=== PATIENT | male | born 1975 | race Caucasian/White ===

== ENCOUNTER 2017-02-06 15:42 | Emergency (ER) | payer OTHER ==
[2017-02-06 15:53] VITALS: BP 165/102
--- NOTE | 2017-02-06 16:27 | EDM.PDOC ---
ED HPI GENERAL MEDICAL PROBLEM - General Chief Complaint: Lower Extremity Injury/Pain Stated Complaint: Right knee pain Time Seen by Provider: 02/06/17 16:00 Source of Information: Reports: Patient, RN Notes Reviewed History Limitations: Reports: No Limitations - History of Present Illness INITIAL COMMENTS - FREE TEXT/NARRATIVE: 41 year old male presents to the ED today with complaints of right knee pain. He had no acute injury. He had surgery on the right knee approximately [address] Jacobo and has intermittent pain ever since. He was working in his garage yesterday and is wondering if that's what caused his increase in pain. He's taken Ibuprofen 800mg with no relief in pain. [facility] He denies calf pain, redness, or swelling. He is currently seeing physical therapy for this right knee pain. Treatments HEDIS ABSTRACTOR: Reports: Other (see below) Other Treatments HEDIS ABSTRACTOR: motrin at 1130 Right Knee Pain Score (Numeric/FACES): 8 - Related Data Allergies Allergy/AdvReac Type Severity Reaction Status Date / Time No Known Allergies Allergy Verified 02/06/17 15:49 Home Meds: Home Meds Ibuprofen [Motrin] 600 mg PO QID PRN 03/26/14 [History] Vitamin D. 02/06/17 [History] oxyCODONE HCl/Acetaminophen [Percocet 5-325 mg Tablet] 1 - 2 each PO Q4H PRN # 20 tablet 02/06/17 [Rx] predniSONE [Prednisone] 40 mg PO DAILY #10 tablet 02/06/17 [Rx] Past Medical History - Past Health History Medical/Surgical History: Denies Medical/Surgical History Cardiovascular History: Reports: High Cholesterol Gastrointestinal History: Reports: Pancreatitis - Past Surgical History Musculoskeletal Surgical History: Reports: Arthroscopic Knee Social & Family History - Tobacco Use Smoking Status *Q: Current Every Day Smoker Years of Tobacco use: 20 Packs/Tins Daily: 0.5 - Caffeine Use Caffeine Use: Reports: Energy Drinks, Soda - Alcohol Use Days Per Week of Alcohol Use: 0 Number of Drinks Per Day: 0 Total Drinks Per Week: 0 - Recreational Drug Use Recreational Drug Use: No Drug Use in Last 12 Months: No Review of Systems - Review of Systems Review Of Systems: See Below Constitutional: Denies: Chills, Fever Musculoskeletal: Reports: Joint Pain, Joint Swelling Skin: Reports: No Symptoms. Denies: Rash, Wound, Lumps ED EXAM, GENERAL - Physical Exam Exam: See Below Exam Limited By: No Limitations General Appearance: Alert, No Apparent Distress, Obese Respiratory/Chest: No Respiratory Distress, Lungs Clear Cardiovascular: Regular Rate, Rhythm Extremities: Normal Inspection, Normal Range of Motion, Other (Able to bear weight. No knee effusion. Tenderness over medial aspect of right knee. CMS intact. No calf swelling or erythema. Negative sunni's sign. ) Course - Vital Signs Last Recorded V/S: Last Vital Signs Temp 97.5 F 02/06/17 15:50 Pulse 70 02/06/17 15:50 Resp 17 02/06/17 15:50 BP 165/102 H 02/06/17 15:50 Pulse Ox 98 02/06/17 15:50 - Re-Assessments/Exams Free Text/Narrative Re-Assessment/Exam: This is a chronic problem with no acute injury. X-rays are not indicated. Will start the patient on prednisone and Percocet. He is to f/u with the [facility] and Dr. Jacobo next week. Discharge instructions as documented. Departure - Departure Time of Disposition: 16:23 Disposition: Home, Self-Care 01 Condition: Good Clinical Impression: Knee pain, right Qualifiers: Chronicity: chronic Qualified Code(s): M25.561 - Pain in right knee; G89.29 - Other chronic pain - Discharge Information Prescriptions: oxyCODONE HCl/Acetaminophen [Percocet 5-325 mg Tablet] 1 - 2 each PO Q4H PRN # 20 tablet PRN Reason: Pain predniSONE [Prednisone] 40 mg PO DAILY #10 tablet Referrals: PCP,Not In Area [Primary Care Provider] - Forms: ED Department Discharge Additional Instructions: Rest, ice and elevate Continue with physical therapy Prednisone 40mg once a day for 5 days Percocet 1-2 tabs every 4-6 hours as needed No driving for at least 8 hours after taking Percocet [facility] and [facility] Jacobo next week
== END 2017-02-06 16:40 | disposition home or self-care (01) ==
LOC: JD.ED 15:42
DX: M25.561 Pain in right knee (principal); E78.00 Pure hypercholesterolemia, unspecified; F17.210 Nicotine dependence, cigarettes, uncomplicated
CPT/HCPCS: 99283

== ENCOUNTER 2017-06-07 07:48 | Inpatient (IN) | payer OTHER ==
[~2017-06-07 07:48] MED LIST: Acetaminophen/oxyCODONE 325-5 MG Tab PO PRN; Bisacodyl 5 MG Tab PO PRN; Famotidine 20 MG Tab PO SCH; Lactated Ringers 1,000 ML IV SCH; Lidocaine 1%/Sod Bicarbonate in NS 8.4% 1 ML Syringe IV PRN; Magnesium Hydroxide 400 MG/5 ML Susp 30 ML Cup PO PRN; Morphine 2 MG/ML Syringe IVPUSH PRN; Naloxone 0.4 MG/ML SDV IVPUSH PRN; Ondansetron 4 MG/2 ML SDV IVPUSH PRN; Sennosides 8.6 MG Tab PO PRN; Sodium Chloride 0.9% 10 ML Syringe FLUSH PRN; ceFAZolin 2 GM in Premix Bag 1 BAG IV SCH; diphenhydrAMINE 50 MG/ML SDV IVPUSH PRN
[2017-06-07] MEDS ORDERED: Ondansetron 4 MG/2 ML SDV ONE ×2 (08:16→10:29)
[2017-06-07] MEDS ORDERED: Propofol 200 MG/20 ML SDV ONE ×5 (08:16→13:08)
[2017-06-07] MEDS ORDERED: Lactated Ringers 0 ML ONE (08:16)
[2017-06-07] MEDS ORDERED: Lidocaine 1% 0 ML ONE (08:16)
[2017-06-07] MEDS ORDERED: Midazolam 1 MG/ML 2 ML SDV ONE ×2 (08:17→10:30)
[2017-06-07] MEDS ORDERED: fentaNYL 100 MCG/2 ML SDV ONE ×2 (08:17→10:30)
[2017-06-07] MEDS ORDERED: ceFAZolin 1 GM Vial ONE ×3 (08:21→10:29)
[2017-06-07] MEDS ORDERED: Ketamine 500 mg/10 ML MDV ONE (08:36)
[2017-06-07] MEDS ORDERED: Iodine/Sodium Iodide 2% Tincture 30 ML Bottle ONE (08:49)
--- NOTE | 2017-06-07 09:30 | PCM.PREANE ---
Preanesthetic Assessment - Anesthesia/Transfusion/Family Hx Anesthesia History: Prior Anesthesia Without Reaction Family History of Anesthesia Reaction: No Transfusion History: No Prior Transfusion(s) Intubation History: Unknown - Review of Systems General: No Symptoms Pulmonary: No Symptoms Cardiovascular: No Symptoms Gastrointestinal: No Symptoms Neurological: No Symptoms Other: Reports: Liver Problems (History of Fatty Liver) - Physical Assessment NPO Status Date: 06/06/17 O2 Sat by Pulse Oximetry: 96 Respiratory Rate: 18 Vital Signs: Last Vital Signs Temp 36.6 C 06/07/17 08:20 Pulse 69 06/07/17 08:20 Resp 18 06/07/17 08:20 BP 139/91 H 06/07/17 08:20 Pulse Ox 96 06/07/17 08:20 Height: 1.73 m Weight: 135.171 kg ASA Class: 2 Mental Status: Alert & Oriented x3 Dentition: Reports: Missing Tooth/Teeth Thyro-Mental Finger Breadths: 3 Mouth Opening Finger Breadths: 3 ROM/Head Extension: Full Lungs: Clear to Auscultation, Normal Respiratory Effort Cardiovascular: Regular Rate, Regular Rhythm - Lab Values: Laboratory Last Values MRSA (PCR) Negative 05/26/17 15:30 - Imaging/EKG Impressions: Reviewed - Allergies Allergies/Adverse Reactions: Allergies Allergy/AdvReac Type Severity Reaction Status Date / Time No Known Allergies Allergy Verified 06/04/17 11:50 - Acknowledgements Anesthesia Type Planned: Spinal Pt an Appropriate Candidate for the Planned Anesthesia: Yes Alternatives and Risks of Anesthesia Discussed w Pt/Guardian: Yes Pt/Guardian Understands and Agrees with Anesthesia Plan: Yes PreAnesthesia Questionnaire - Past Health History Medical/Surgical History: Denies Medical/Surgical History HEENT History: Reports: None Cardiovascular History: Reports: High Cholesterol Respiratory History: Reports: Sleep Apnea Gastrointestinal History: Reports: None Other Gastrointestinal History: Fatty liver, abnormal liver function Genitourinary History: Reports: None Musculoskeletal History: Reports: Other (See Below) Other Musculoskeletal History: Patellar instability Neurological History: Reports: None Psychiatric History: Reports: None Endocrine/Metabolic History: Reports: Obesity/BMI 30+, Vitamin D Deficiency, Other (See Below) Hematologic History: Reports: None Immunologic History: Reports: None Oncologic (Cancer) History: Reports: None Dermatologic History: Reports: None - Past Surgical History Head Surgeries/Procedures: Reports: None HEENT Surgical History: Reports: Other (See Below) Other HEENT Surgeries/Procedures: Dental extractions Cardiovascular Surgical History: Reports: None Respiratory Surgical History: Reports: None GI Surgical History: Reports: None Female Surgical History: Male Surgical History: Reports: None Neurological Surgical History: Reports: None Musculoskeletal Surgical History: Reports: Other (See Below) Other Musculoskeletal Surgeries/Procedures:: Right knee arthroscopy Oncologic Surgical History: Reports: None Dermatological Surgical History: Reports: None - SUBSTANCE USE Smoking Status *Q: Former Smoker Tobacco Use Within Last Twelve Months: Snuff/Dip Days Per Week of Alcohol Use: 0 Number of Drinks Per Day: 0 Total Drinks Per Week: 0 Recreational Drug Use History: No - HOME MEDS Home Medications: Home Meds Ibuprofen [Motrin] 600 mg PO BID PRN 03/26/14 [History] Ascorbate Calcium [Vitamin C] 500 mg PO DAILY 06/04/17 [History] Cholecalciferol (Vitamin D3) [Vitamin D3] 5,000 unit PO BEDTIME 06/04/17 [ History] - CURRENT (IN HOUSE) MEDS Current Meds: Current Medications Aspirin (Ecotrin) 325 mg PO BID [facility] Bisacodyl (Dulcolax) 5 mg PO DAILY PRN PRN Reason: Constipation Cyclobenzaprine HCl (Flexeril) 10 mg PO TID PRN PRN Reason: Spasms Diphenhydramine HCl (Benadryl) 25 mg IVPUSH Q4H PRN PRN Reason: Nausea Docusate Sodium (Colace) 100 mg PO BID [facility] Famotidine (Pepcid) 20 mg PO Q12H [facility] Lactated Ringer's (Ringers, Lactated) 1,000 mls @ 125 mls/hr IV ASDIRECTED [facility] Stop: 06/07/17 18:00 Cefazolin Sodium/Dextrose 2 gm (/ Premix) 50 mls @ 100 mls/hr IV Q8H [facility] Stop: 06/07/17 23:14 Ketorolac Tromethamine (Toradol) 15 mg IVPUSH Q6H PRN PRN Reason: Pain Lidocaine/Sodium Bicarbonate (Buffered Lidocaine 1% In Ns 8.4%) 0.25 ml IV ONETIME PRN PRN Reason: Prior to IV Start Stop: 06/07/17 18:00 Magnesium Hydroxide (Milk Of Magnesia) 30 ml PO BID PRN PRN Reason: Constipation Morphine Sulfate (Morphine) 2 mg IVPUSH Q2H PRN PRN Reason: Breakthrough Pain Naloxone HCl (Narcan) 0.1 mg IVPUSH Q5M PRN PRN Reason: Oversedation Ondansetron HCl (Zofran) 4 mg IVPUSH Q6H PRN PRN Reason: Nausea/Vomiting Oxycodone/Acetaminophen (Percocet 325-5 Mg) 1 - 2 tab PO Q4H PRN PRN Reason: Pain Senna (Senna) 8.6 mg PO BID PRN PRN Reason: Constipation Sodium Chloride (Saline Flush) 10 ml FLUSH ASDIRECTED PRN PRN Reason: Keep Vein Open Stop: 06/07/17 18:00 Discontinued Medications Bupivacaine HCl (Marcaine 0.25%) Confirm Administered Dose 30 ml .ROUTE .STK- MED ONE Stop: 06/07/17 08:50 Cefazolin Sodium (Ancef) Confirm Administered Dose 2 gm .ROUTE .STK-MED ONE Stop: 06/07/17 08:17 Cefazolin Sodium (Ancef) Confirm Administered Dose 1 gm .ROUTE .STK-MED ONE Stop: 06/07/17 08:22 Cefazolin Sodium (Ancef) Confirm Administered Dose 2 gm .ROUTE .STK-MED ONE Stop: 06/07/17 08:50 Morphine Sulfate 8 mg/Epinephrine HCl 0.3 mg/Cefuroxime Sodium 750 mg/Ketorolac Tromethamine 30 mg/Sodium Chloride 27.9 ml 0 mg .XX ONETIME ONE Stop: 06/07/17 06:37 Fentanyl (Sublimaze) Confirm Administered Dose 100 mcg .ROUTE .STK-MED ONE Stop: 06/07/17 08:18 Lidocaine HCl (Xylocaine-Mpf 1%) Confirm Administered Dose 10 mls @ as directed .ROUTE .STK-MED ONE Stop: 06/07/17 08:17 Lactated Ringer's (Ringers, Lactated) Confirm Administered Dose 2,000 mls @ as directed .ROUTE .STK-MED ONE Stop: 06/07/17 08:17 Iodine (Iodine 2% Mild Tincture) Confirm Administered Dose 30 ml .ROUTE .STK- MED ONE Stop: 06/07/17 08:50 Ketamine HCl (Ketalar) Confirm Administered Dose 500 mg .ROUTE .STK-MED ONE Stop: 06/07/17 08:37 Midazolam HCl (Versed 1 Mg/Ml) Confirm Administered Dose 2 mg .ROUTE .STK-MED ONE Stop: 06/07/17 08:18 Ondansetron HCl (Zofran) Confirm Administered Dose 4 mg .ROUTE .STK-MED ONE Stop: 06/07/17 08:17 Propofol (Diprivan 20 Ml) Confirm Administered Dose 400 mg .ROUTE .STK-MED ONE Stop: 06/07/17 08:17 Tranexamic Acid (Cyklokapron) Confirm Administered Dose 1,000 mg .ROUTE .STK- MED ONE Stop: 06/07/17 08:50 Vancomycin HCl (Vancomycin) Confirm Administered Dose 1 gm .ROUTE .STK-MED ONE Stop: 06/07/17 08:50
[2017-06-07] MEDS ORDERED: Morphine PF 10 MG/10 ML SDV ONE ×2 (09:56→10:30)
[2017-06-07] MEDS ORDERED: Phenylephrine/Normal Saline 100 MCG/ML 10 ML Syringe ONE (09:57)
[2017-06-07] MEDS: ceFAZolin 1 GM Vial ONE ×2 (12:48→13:25)
[2017-06-07] MEDS: Bupivacaine 0.25% 30 ML SDV ONE ×2 (12:49→13:30)
[2017-06-07] MEDS: Morphine 8 MG, EPINEPHrine 0.3 MG, Cefuroxime 750 MG, Ketorolac 30 MG, Sodium Chloride ... ONE ×10 (12:49→13:30)
[2017-06-07] MEDS: Vancomycin 1 GM SDV ONE ×2 (12:52→13:35)
[2017-06-07] MEDS ORDERED: Lactated Ringers 1,000 ML ONE ×2 (13:59)
[2017-06-07] MEDS ORDERED: HYDROmorphone 0.5 MG/0.5 ML Syringe IVPUSH PRN (14:20)
[2017-06-07] MEDS ORDERED: fentaNYL 100 MCG/2 ML SDV IVPUSH PRN (14:20)
--- NOTE | 2017-06-07 14:23 | PCM.POSTAN ---
POST ANESTHESIA ASSESSMENT - MENTAL STATUS Mental Status: Alert, Oriented - VITAL SIGNS Pulse Rate: 63 SaO2: 99 Resp Rate: 16 Blood Pressure: 121/73 Temperature: 36.2 C - RESPIRATORY Respiratory Status: Respiratory Rate WNL, Airway Patent, O2 Saturation Stable, Supplemental Oxygen - CARDIOVASCULAR CV Status: Blood Pressure Stable Free Text/Narrative:: pt noted to have bigeminal PVCs will get EKG at this time - GASTROINTESTINAL GI Status: No Symptoms - PAIN Pain Score: 0 - POST OP HYDRATION Hydration Status: Adequate & Stable
--- NOTE | 2017-06-07 14:42 | CR ---
Right knee: AP and crosstable lateral views of the right knee were obtained. Comparison: Previous MRI knee study of 04/14/17. Medial and lateral joint compartments are maintained in height. Surgery noted at the patellofemoral joint. Joint fluid and air is seen from the surgical procedure. Underlying bony structures are intact. Impression: 1. Recently placed patellar prosthesis. Nothing acute is seen. Diagnostic code #2
[2017-06-07] MEDS ORDERED: diphenhydrAMINE 50 MG/ML SDV IVPUSH PRN (14:54)
--- NOTE | 2017-06-07 15:46 | PCM.CONS ---
H&P History of Present Illness - General Admit Problem/Dx: Admission Diagnosis/Problem Admission Diagnosis/Problem Osteoarthritis of knee Source of Information: Patient History Limitations: Reports: No Limitations - History of Present Illness Initial Comments - Free Text/Narative: pt come for elective surgery for knee cap replacement by Dr torres, pt tolerated procedure well with no complications. In Recovery he had brief episode of PAC on monitor which was not captured on ECG, pt was asymptomatic during this time, Currently have no CP or sob. Pt denies any dizziness or palpitation. Pt had no significant PMHx except for sleep apnea. Right Knee Pain Score (Numeric/FACES): 4 - Related Data Allergies/Adverse Reactions: Allergies Allergy/AdvReac Type Severity Reaction Status Date / Time No Known Allergies Allergy Verified 06/04/17 11:50 Home Medications: Home Meds Ibuprofen [Motrin] 600 mg PO BID PRN 03/26/14 [History] Ascorbate Calcium [Vitamin C] 500 mg PO DAILY 06/04/17 [History] Cholecalciferol (Vitamin D3) [Vitamin D3] 5,000 unit PO BEDTIME 06/04/17 [ History] Past Medical History - Past Health History Medical/Surgical History: Denies Medical/Surgical History HEENT History: Reports: None Cardiovascular History: Reports: High Cholesterol Respiratory History: Reports: Sleep Apnea Other Respiratory History: Patient is waiting for approval for CPAP. Gastrointestinal History: Reports: None Other Gastrointestinal History: Fatty liver, abnormal liver function Genitourinary History: Reports: None Musculoskeletal History: Reports: Other (See Below) Other Musculoskeletal History: Patellar instability Neurological History: Reports: None Psychiatric History: Reports: None Endocrine/Metabolic History: Reports: Obesity/BMI 30+, Vitamin D Deficiency, Other (See Below) Hematologic History: Reports: None Immunologic History: Reports: None Oncologic (Cancer) History: Reports: None Dermatologic History: Reports: None - Past Surgical History Head Surgeries/Procedures: Reports: None HEENT Surgical History: Reports: Other (See Below) Other HEENT Surgeries/Procedures: Dental extractions Cardiovascular Surgical History: Reports: None Respiratory Surgical History: Reports: None GI Surgical History: Reports: None Female Surgical History: Male Surgical History: Reports: None Neurological Surgical History: Reports: None Musculoskeletal Surgical History: Reports: Other (See Below) Other Musculoskeletal Surgeries/Procedures:: Right knee arthroscopy Oncologic Surgical History: Reports: None Dermatological Surgical History: Reports: None Social & Family History - Tobacco Use Smoking Status *Q: Former Smoker Years of Tobacco use: 20 Packs/Tins Daily: 0.5 Used Tobacco, but Quit: No Tobacco Use Comment: Patient quit smoking about 1 month ago. Prior use was 1 pack per day for about 20 years. Currently uses chewing tobacco. Patient states a can lasts about 1.5 days. Instructed patient of no tobacco products after 06/07/17 0000. - Caffeine Use Caffeine Use: Reports: Soda - Alcohol Use Days Per Week of Alcohol Use: 0 Number of Drinks Per Day: 0 Total Drinks Per Week: 0 - Recreational Drug Use Recreational Drug Use: No Drug Use in Last 12 Months: No H&P Review of Systems - Review of Systems: Review Of Systems: See Below General: Reports: No Symptoms HEENT: Reports: No Symptoms Pulmonary: Reports: No Symptoms Cardiovascular: Reports: No Symptoms Gastrointestinal: Reports: No Symptoms Genitourinary: Reports: No Symptoms Musculoskeletal: Reports: No Symptoms Skin: Reports: No Symptoms Psychiatric: Reports: No Symptoms Neurological: Reports: No Symptoms Hematologic/Lymphatic: Reports: No Symptoms Immunologic: Reports: No Symptoms Exam - Exam Exam: See Below - Vital Signs Vital Signs: Last Vital Signs Temp 97.3 F 06/07/17 15:15 Pulse 63 06/07/17 14:22 Resp 16 06/07/17 15:15 BP 135/87 06/07/17 15:15 Pulse Ox 97 06/07/17 15:15 Weight: 298 lb - Exam General: Alert, Oriented, 4 HEENT: PERRLA, Hearing Intact, Mucosa Moist & [place], Nares Patent, Normal Nasal Septum, Posterior Pharynx Clear, Conjunctiva Clear, EOMI, EACs Clear, TMs Clear Neck: Supple, Trachea Midline, 2 Lungs: Clear to Auscultation, Normal Respiratory Effort Cardiovascular: Regular Rate, Regular Rhythm GI/Abdominal Exam: Normal Bowel Sounds, Soft, Non-Tender, No Organomegaly, No Distention, No Abnormal Bruit, No Mass, Pelvis Stable (Male) Exam: Deferred Rectal (Males) Exam: Deferred Back Exam: Normal Inspection, Full Range of Motion, NT Extremities: Normal Inspection, Normal Range of Motion, Non-Tender, No Pedal Edema, Normal Capillary Refill Skin: Warm, Dry, Intact Neurological: Cranial Nerves Intact, Reflexes Equal Bilateral Neuro Extensive - Mental Status: Alert, Oriented x3, Normal Mood/Affect, Normal Cognition Neuro Extensive - Motor, Sensory, Reflexes: CN II-XII Intact, Normal Gait, Normal Reflexes Psychiatric: Alert, Normal Affect, Normal Mood - Patient Data Lab Results Last 24 hrs: Laboratory Results - last 24 hr 06/07/17 Range/Units 08:40 APTT 27 (22-36) SECONDS Consult PN Assessment/Plan Procedures: Procedures ARTHROSCOPY OF JOINT (03/27/14) EMERGENCY DEPT VISIT (02/06/17) EMERGENCY DEPT VISIT (07/10/16) EXPLORE/TREAT KNEE JOINT (03/27/14) KNEE ARTHROSCOPY/SURGERY (03/27/14) MANUAL THERAPY 1/> REGIONS (02/19/17) MRI JNT OF LWR EXTRE W/O DYE (04/14/17) POLYSOM 6/> YRS 4/> JENNIFER (01/30/17) PT EVAL LOW COMPLEX 20 MIN (12/28/16) THERAPEUTIC EXERCISES (02/19/17) X-RAY EXAM OF KNEE 3 (12/06/13) X-RAY EXAM OF SKULL (04/14/17) Problem List Initiated/Reviewed/Updated: Yes My Orders Last 24 Hours: My Active Orders 06/07/17 21:00 Cholecalciferol (Vitamin D3) [Vitamin D3] 5,000 units PO BEDTIME 06/08/17 09:00 Ascorbic Acid [Vitamin C] 500 mg PO DAILY Plan: POD #0 FOR ELECTIVE RT KNEE CAP OA PAC RESOLVED BRIAN DVT PRO PER SURGERY TEAM PLAN: -EKG WNL -PT/OT F/U -SURGERY F/U H/H -OK TO USE OXYGEN AT NIGHT IF NEEDED FOR BRIAN WILL SIGN OFF, AND IF NEEDED WILL RE SEE HIM AGAIN THANK YOU
[2017-06-07] MEDS: Ketorolac 15 MG/ML SDV IVPUSH PRN (17:25)
[2017-06-07] MEDS: Acetaminophen/oxyCODONE 325-5 MG Tab PO PRN (19:33)
[2017-06-07] MEDS: ceFAZolin 1 GM in Premix Bag 1 BAG IV SCH (20:22)
[2017-06-07] MEDS: ceFAZolin 2 GM in Premix Bag 1 BAG IV SCH (20:22)
[2017-06-07] MEDS: Docusate Sodium 100 MG Cap PO SCH (20:23)
[2017-06-07] MEDS: Famotidine 20 MG Tab PO SCH (20:23)
[2017-06-07] MEDS: Cyclobenzaprine 10 MG Tab PO PRN (20:23)
[2017-06-07] MEDS ORDERED: Cholecalciferol (Vitamin D3) 1,000 Unit Tab PO SCH (21:00)
[2017-06-08] MEDS: Ketorolac 15 MG/ML SDV IVPUSH PRN ×2 (01:45→08:28)
[2017-06-08] MEDS: Acetaminophen/oxyCODONE 325-5 MG Tab PO PRN ×3 (01:46→10:14)
[2017-06-08] MEDS: Cyclobenzaprine 10 MG Tab PO PRN ×2 (05:32→11:29)
[2017-06-08] MEDS: ceFAZolin 2 GM in Premix Bag 1 BAG IV SCH ×2 (05:40→11:09)
[2017-06-08] MEDS: ceFAZolin 1 GM in Premix Bag 1 BAG IV SCH ×2 (05:41→11:09)
[2017-06-08] MEDS: Famotidine 20 MG Tab PO SCH (08:33)
[2017-06-08] MEDS: Docusate Sodium 100 MG Cap PO SCH (08:33)
[2017-06-08] MEDS ORDERED: Ascorbic Acid 500 MG Tab PO SCH (09:00)
[2017-06-08] MEDS ORDERED: Aspirin 325 MG Tab.EC PO SCH (09:00)
[2017-06-08] MEDS ORDERED: oxyCODONE 5 MG Tab PO ONE (12:21)
[2017-06-08 12:48] VITALS: BP 144/87
--- NOTE | 2017-06-09 11:11 | PCM.SURGPN ---
- General Info Date of Service: 06/08/17 POD#: 1 Functional Status: Reports: Pain Controlled, Tolerating Diet, Ambulating, Urinating, Incentive Spirometry - Review of Systems Musculoskeletal: Reports: Other (The pt met inpatient therapy goals. ) - Patient Data Vitals - Most Recent: Last Vital Signs Temp 98.8 F 06/08/17 12:35 Pulse 77 06/08/17 12:37 Resp 18 06/08/17 12:35 BP 144/87 H 06/08/17 12:37 Pulse Ox 93 L 06/08/17 12:37 Weight - Most Recent: 308 lb 1.6 oz I&O - Last 24 Hours: Intake & Output 06/08/17 06/09/17 06/09/17 22:59 06:59 14:59 Intake Total 840 Balance 840 Med Orders - Current: Current Medications Discontinued Medications Ascorbic Acid (Vitamin C) 500 mg PO DAILY [facility] Last Admin: 06/08/17 08:33 Dose: 500 mg Aspirin (Ecotrin) 325 mg PO BID [facility] Last Admin: 06/08/17 08:33 Dose: 325 mg Bisacodyl (Dulcolax) 5 mg PO DAILY PRN PRN Reason: Constipation Bupivacaine HCl (Marcaine 0.25%) Confirm Administered Dose 30 ml .ROUTE .STK- MED ONE Stop: 06/07/17 08:50 Last Admin: 06/07/17 13:30 Dose: 30 ml Cefazolin Sodium (Ancef) Confirm Administered Dose 2 gm .ROUTE .STK-MED ONE Stop: 06/07/17 08:17 Last Admin: 06/07/17 13:25 Dose: 2 gm Cefazolin Sodium (Ancef) Confirm Administered Dose 1 gm .ROUTE .STK-MED ONE Stop: 06/07/17 08:22 Cefazolin Sodium (Ancef) Confirm Administered Dose 2 gm .ROUTE .STK-MED ONE Stop: 06/07/17 08:50 Cefazolin Sodium (Ancef) Confirm Administered Dose 2 gm .ROUTE .STK-MED ONE Stop: 06/07/17 10:30 Cholecalciferol (Vitamin D3) 5,000 units PO BEDTIME [facility] Last Admin: 06/07/17 20:23 Dose: 5,000 units Morphine Sulfate 8 mg/Epinephrine HCl 0.3 mg/Cefuroxime Sodium 750 mg/Ketorolac Tromethamine 30 mg/Sodium Chloride 27.9 ml 0 mg .XX ONETIME ONE Stop: 06/07/17 06:37 Last Admin: 06/07/17 13:30 Dose: 788.3 mg Cyclobenzaprine HCl (Flexeril) 10 mg PO TID PRN PRN Reason: Spasms Last Admin: 06/08/17 11:29 Dose: 10 mg Diphenhydramine HCl (Benadryl) 25 mg IVPUSH Q4H PRN PRN Reason: Nausea Diphenhydramine HCl (Benadryl) 25 mg IVPUSH ONETIME PRN PRN Reason: Itching Stop: 06/07/17 23:00 Last Admin: 06/07/17 15:00 Dose: 25 mg Docusate Sodium (Colace) 100 mg PO BID [facility] Last Admin: 06/08/17 08:33 Dose: 100 mg Famotidine (Pepcid) 20 mg PO Q12H [facility] Last Admin: 06/07/17 14:33 Dose: Not Given Famotidine (Pepcid) 20 mg PO Q12H [facility] Last Admin: 06/08/17 08:33 Dose: 20 mg Fentanyl (Sublimaze) Confirm Administered Dose 100 mcg .ROUTE .STK-MED ONE Stop: 06/07/17 08:18 Fentanyl (Sublimaze) Confirm Administered Dose 100 mcg .ROUTE .STK-MED ONE Stop: 06/07/17 10:31 Fentanyl (Sublimaze) 50 mcg IVPUSH Q5M PRN PRN Reason: pain Stop: 06/07/17 18:00 Hydromorphone HCl (Dilaudid) 0.5 mg IVPUSH Q15M PRN PRN Reason: Pain (severe 7-10) Stop: 06/07/17 18:00 Lactated Ringer's (Ringers, Lactated) 1,000 mls @ 125 mls/hr IV ASDIRECTED [facility] Stop: 06/07/17 18:00 Last Admin: 06/07/17 08:40 Dose: 125 mls/hr Cefazolin Sodium/Dextrose 2 gm (/ Premix) 50 mls @ 100 mls/hr IV Q8H [facility] Stop: 06/07/17 23:14 Last Admin: 06/07/17 16:13 Dose: Not Given Lidocaine HCl (Xylocaine-Mpf 1%) Confirm Administered Dose 0 mls @ as directed .ROUTE .STK-MED ONE Stop: 06/07/17 08:17 Lactated Ringer's (Ringers, Lactated) Confirm Administered Dose 0 mls @ as directed .ROUTE .STK-MED ONE Stop: 06/07/17 08:17 Lactated Ringer's (Ringers, Lactated) Confirm Administered Dose 1,000 mls @ as directed .ROUTE .STK-MED ONE Stop: 06/07/17 14:00 Lactated Ringer's (Ringers, Lactated) Confirm Administered Dose 1,000 mls @ as directed .ROUTE .STK-MED ONE Stop: 06/07/17 14:00 Cefazolin Sodium/Dextrose 2 gm (/ Premix) 50 mls @ 100 mls/hr IV Q8H [facility] Stop: 06/08/17 12:29 Last Admin: 06/08/17 11:09 Dose: 100 mls/hr Cefazolin Sodium/Dextrose (Ancef) 50 mls @ 100 mls/hr IV Q8H [facility] Stop: 06/08/17 08:59 Cefazolin Sodium/Dextrose 1 gm (/ Premix) 50 mls @ 100 mls/hr IV Q8H [facility] Stop: 06/08/17 12:29 Last Admin: 06/08/17 11:09 Dose: 100 mls/hr Iodine (Iodine 2% Mild Tincture) Confirm Administered Dose 30 ml .ROUTE .STK- MED ONE Stop: 06/07/17 08:50 Ketamine HCl (Ketalar) Confirm Administered Dose 500 mg .ROUTE .STK-MED ONE Stop: 06/07/17 08:37 Ketorolac Tromethamine (Toradol) 15 mg IVPUSH Q6H PRN PRN Reason: Pain Last Admin: 06/08/17 08:28 Dose: 15 mg Lidocaine/Sodium Bicarbonate (Buffered Lidocaine 1% In Ns 8.4%) 0.25 ml IV ONETIME PRN PRN Reason: Prior to IV Start Stop: 06/07/17 18:00 Last Admin: 06/07/17 08:35 Dose: 0.25 ml Magnesium Hydroxide (Milk Of Magnesia) 30 ml PO BID PRN PRN Reason: Constipation Midazolam HCl (Versed 1 Mg/Ml) Confirm Administered Dose 2 mg .ROUTE .STK-MED ONE Stop: 06/07/17 08:18 Midazolam HCl (Versed 1 Mg/Ml) Confirm Administered Dose 2 mg .ROUTE .STK-MED ONE Stop: 06/07/17 10:31 Morphine Sulfate (Morphine) 2 mg IVPUSH Q2H PRN PRN Reason: Breakthrough Pain Last Admin: 06/08/17 12:28 Dose: 2 mg Morphine Sulfate (Duramorph Pf) Confirm Administered Dose 10 mg .ROUTE .STK-MED ONE Stop: 06/07/17 09:57 Morphine Sulfate (Duramorph Pf) Confirm Administered Dose 10 mg .ROUTE .STK-MED ONE Stop: 06/07/17 10:31 Naloxone HCl (Narcan) 0.1 mg IVPUSH Q5M PRN PRN Reason: Oversedation Ondansetron HCl (Zofran) 4 mg IVPUSH Q6H PRN PRN Reason: Nausea/Vomiting Last Admin: 06/08/17 12:14 Dose: 4 mg Ondansetron HCl (Zofran) Confirm Administered Dose 4 mg .ROUTE .STK-MED ONE Stop: 06/07/17 08:17 Ondansetron HCl (Zofran) Confirm Administered Dose 4 mg .ROUTE .STK-MED ONE Stop: 06/07/17 10:30 Oxycodone HCl (Oxycodone) 5 mg PO ONETIME ONE Stop: 06/08/17 12:22 Last Admin: 06/08/17 14:45 Dose: 5 mg Oxycodone/Acetaminophen (Percocet 325-5 Mg) 1 - 2 tab PO Q4H PRN PRN Reason: Pain Oxycodone/Acetaminophen (Percocet 325-5 Mg) 1 - 2 tab PO Q4H PRN PRN Reason: Pain Last Admin: 06/08/17 10:14 Dose: 2 tab Phenylephrine HCl (Phenylephrine In Ns 100 Mcg/Ml) Confirm Administered Dose 1 mg .ROUTE .STK-MED ONE Stop: 06/07/17 09:58 Propofol (Diprivan 20 Ml) Confirm Administered Dose 400 mg .ROUTE .STK-MED ONE Stop: 06/07/17 08:17 Propofol (Diprivan 20 Ml) Confirm Administered Dose 400 mg .ROUTE .STK-MED ONE Stop: 06/07/17 10:31 Propofol (Diprivan 20 Ml) Confirm Administered Dose 200 mg .ROUTE .STK-MED ONE Stop: 06/07/17 12:41 Propofol (Diprivan 20 Ml) Confirm Administered Dose 200 mg .ROUTE .STK-MED ONE Stop: 06/07/17 13:09 Propofol (Diprivan 20 Ml) Confirm Administered Dose 200 mg .ROUTE .STK-MED ONE Stop: 06/07/17 13:09 Senna (Senna) 8.6 mg PO BID PRN PRN Reason: Constipation Sodium Chloride (Saline Flush) 10 ml FLUSH ASDIRECTED PRN PRN Reason: Keep Vein Open Stop: 06/07/17 18:00 Tranexamic Acid (Cyklokapron) Confirm Administered Dose 1,000 mg .ROUTE .STK- MED ONE Stop: 06/07/17 08:50 Last Admin: 06/07/17 13:40 Dose: 1,000 mg Vancomycin HCl (Vancomycin) Confirm Administered Dose 1 gm .ROUTE .STK-MED ONE Stop: 06/07/17 08:50 Last Admin: 06/07/17 13:35 Dose: 1 gm - Exam Wound/Incisions: Dressing Dry and Intact General: Alert, Cooperative, No Acute Distress Lungs: Normal Respiratory Effort Extremities: Other (NVS intact for BLE. Pascual's neg for BLE. Min assist required for SLR RLE.) - Problem List Review Problem List Initiated/Reviewed/Updated: Yes - My Orders Last 24 Hours: Active Orders 24 hr Category Date Time Status Ready for Discharge [RC] PER UNIT ROUTINE Care 06/08/17 11:52 Active - Assessment Assessment (Free Text/Narrative):: POD#1 - right patellofemoral arthroplasty - Plan Plan (Free Text/Narrative):: 1. Discharge to home today. The pt will have the assistance of his . 2. Hgb 15.1. 3. Outpatient P.T. 4. ASA BID, frequent mobility, TEDs. The pt's case was discussed with Dr. Morley today.
--- NOTE | 2017-06-09 11:12 | PCM.DCSUM1 ---
Discharge Summary - Hospital Course Brief History: Peng is a 41 yo male who underwent right patellofemoral arthroplasty with Dr. Morley on 06-07-2017. The procedure was completed under spinal anesthesia. The pt tolerated the procedure well and was admitted to the Medical-Surgical Unit. Medical management was provided by the Hospitalist service. The pt's Hospital course was uneventful. The pt's Hgb on POD#1 was 15.1. On POD#1, 325mg ASA BID was initiated for VTE prophylaxis. SCDs and TEDs were also ordered. A Mepilex dressing was placed at the incision site at the time of surgery and remained clean and dry. The pt participated in P.T. and O.T. and progressed well. He met inpatient therapy goals and on POD#1, the pt was deemed appropriate to discharge to home with his . - Discharge Data Discharge Date: 06/08/17 Discharge Disposition: Home, Self-Care 01 Condition: Good - Patient Summary/Data Consults: Consultations 06/07/17 06:37 Consult to Physician [CONS] Routine OT Evaluation and Treatment [CONS] Routine 06/07/17 06:42 PT Evaluation and Treatment [CONS] Routine - Patient Instructions Diet: Usual Diet as Tolerated Activity: Apply Ice, As Tolerated, Elevate Extremity, Full Weight Bearing Driving: Do Not Drive Showering/Bathing: May Shower Wound/Incision Care: Keep Operative Site/Wound Site Clean and Dry, Do NOT Change Dressing Notify Provider of: Fever, Increased Pain, Swelling and Redness, Drainage, Nausea and/or Vomiting Other/Special Instructions: Please get up and moving around every hour while awake. This helps to prevent blood clots. Please take 325mg aspirin twice daily - this also helps to prevent blood clots. The medication is being used for blood clot prevention and not for pain control, so please use the medication twice daily as directed. Please wear the TYRELL hose during the day and you may remove them at night. Please schedule for P.T. Complete the P.T. exercises and stretches that were instructed in the Hospital. Please use the pain medication and muscle relaxant as needed. The medication may cause drowsiness and/or constipation. You could use a stool softener like docusate sodium or Colace 100mg twice daily and/or a laxative like Miralax daily for constipation. Contact your primary care provider for further instructions if you are constipated. Please schedule an appointment with your primary care provider for 'routine post-op care'. Use the incentive spirometer often. Please place ice to the knee often. Please elevate the limb to decrease swelling. Keep the Mepilex dressing in place until follow-up. Please call [phone] with questions or concerns. - Discharge Plan Prescriptions/Med Rec: Acetaminophen/oxyCODONE [Percocet 325-5 MG] 1 - 2 tab PO Q4H PRN #60 tablet PRN Reason: Pain Aspirin [Ecotrin] 325 mg PO BID #70 tab.ec Cyclobenzaprine [Flexeril] 10 mg PO TID PRN #40 tablet PRN Reason: Spasms Home Medications: Home Meds Cholecalciferol (Vitamin D3) [Vitamin D3] 5,000 unit PO BEDTIME 06/04/17 [ History] Acetaminophen/oxyCODONE [Percocet 325-5 MG] 1 - 2 tab PO Q4H PRN #60 tablet 11/18 [Rx] Aspirin [Ecotrin] 325 mg PO BID #70 tab.ec 06/08/17 [Rx] Bisacodyl [Dulcolax] 5 mg PO DAILY PRN tablet 06/08/17 [Rx] Cyclobenzaprine [Flexeril] 10 mg PO TID PRN #40 tablet 06/08/17 [Rx] Docusate Sodium [Colace] 100 mg PO BID cap 06/08/17 [Rx] Famotidine [Pepcid] 20 mg PO Q12H tablet 06/08/17 [Rx] Magnesium Hydroxide [Milk of Magnesia] 30 ml PO BID PRN cup 06/08/17 [Rx] Sennosides [Senna] 8.6 mg PO BID PRN tablet 06/08/17 [Rx] Patient Handouts: Smoking Cessation, Tips for Success, [id number], Smoking Hazards, Cyclobenzaprine tablets, Acetaminophen; Oxycodone tablets, Total Knee Replacement, Care After, [id number], Total Knee Replacement, [id number]-Eyel, Smokeless Tobacco Use, Aspirin, ASA oral tablets, Knee Rehabilitation Guidelines Following Surgery, Tobacco Use Disorder Referrals: Sarina Jones PA-C [Physician Md Ophthalmologist] - (Please see Sarina Jones on Wednesday06/15/17 at 9:45 AM and on Wednesday06/22/17 at 10:30 AM.) - Patient Data Vitals - Most Recent: Last Vital Signs Temp 98.8 F 06/08/17 12:35 Pulse 77 06/08/17 12:37 Resp 18 06/08/17 12:35 BP 144/87 H 06/08/17 12:37 Pulse Ox 93 L 06/08/17 12:37 Weight - Most Recent: 308 lb 1.6 oz I&O - Last 24 hours: Intake & Output 06/08/17 06/09/17 06/09/17 22:59 06:59 14:59 Intake Total 840 Balance 840 Med Orders - Current: Current Medications Discontinued Medications Ascorbic Acid (Vitamin C) 500 mg PO DAILY [facility] Last Admin: 06/08/17 08:33 Dose: 500 mg Aspirin (Ecotrin) 325 mg PO BID [facility] Last Admin: 06/08/17 08:33 Dose: 325 mg Bisacodyl (Dulcolax) 5 mg PO DAILY PRN PRN Reason: Constipation Bupivacaine HCl (Marcaine 0.25%) Confirm Administered Dose 30 ml .ROUTE .STK- MED ONE Stop: 06/07/17 08:50 Last Admin: 06/07/17 13:30 Dose: 30 ml Cefazolin Sodium (Ancef) Confirm Administered Dose 2 gm .ROUTE .STK-MED ONE Stop: 06/07/17 08:17 Last Admin: 06/07/17 13:25 Dose: 2 gm Cefazolin Sodium (Ancef) Confirm Administered Dose 1 gm .ROUTE .STK-MED ONE Stop: 06/07/17 08:22 Cefazolin Sodium (Ancef) Confirm Administered Dose 2 gm .ROUTE .STK-MED ONE Stop: 06/07/17 08:50 Cefazolin Sodium (Ancef) Confirm Administered Dose 2 gm .ROUTE .STK-MED ONE Stop: 06/07/17 10:30 Cholecalciferol (Vitamin D3) 5,000 units PO BEDTIME [facility] Last Admin: 06/07/17 20:23 Dose: 5,000 units Morphine Sulfate 8 mg/Epinephrine HCl 0.3 mg/Cefuroxime Sodium 750 mg/Ketorolac Tromethamine 30 mg/Sodium Chloride 27.9 ml 0 mg .XX ONETIME ONE Stop: 06/07/17 06:37 Last Admin: 06/07/17 13:30 Dose: 788.3 mg Cyclobenzaprine HCl (Flexeril) 10 mg PO TID PRN PRN Reason: Spasms Last Admin: 06/08/17 11:29 Dose: 10 mg Diphenhydramine HCl (Benadryl) 25 mg IVPUSH Q4H PRN PRN Reason: Nausea Diphenhydramine HCl (Benadryl) 25 mg IVPUSH ONETIME PRN PRN Reason: Itching Stop: 06/07/17 23:00 Last Admin: 06/07/17 15:00 Dose: 25 mg Docusate Sodium (Colace) 100 mg PO BID [facility] Last Admin: 06/08/17 08:33 Dose: 100 mg Famotidine (Pepcid) 20 mg PO Q12H [facility] Last Admin: 06/07/17 14:33 Dose: Not Given Famotidine (Pepcid) 20 mg PO Q12H [facility] Last Admin: 06/08/17 08:33 Dose: 20 mg Fentanyl (Sublimaze) Confirm Administered Dose 100 mcg .ROUTE .STK-MED ONE Stop: 06/07/17 08:18 Fentanyl (Sublimaze) Confirm Administered Dose 100 mcg .ROUTE .STK-MED ONE Stop: 06/07/17 10:31 Fentanyl (Sublimaze) 50 mcg IVPUSH Q5M PRN PRN Reason: pain Stop: 06/07/17 18:00 Hydromorphone HCl (Dilaudid) 0.5 mg IVPUSH Q15M PRN PRN Reason: Pain (severe 7-10) Stop: 06/07/17 18:00 Lactated Ringer's (Ringers, Lactated) 1,000 mls @ 125 mls/hr IV ASDIRECTED [facility] Stop: 06/07/17 18:00 Last Admin: 06/07/17 08:40 Dose: 125 mls/hr Cefazolin Sodium/Dextrose 2 gm (/ Premix) 50 mls @ 100 mls/hr IV Q8H [facility] Stop: 06/07/17 23:14 Last Admin: 06/07/17 16:13 Dose: Not Given Lidocaine HCl (Xylocaine-Mpf 1%) Confirm Administered Dose 0 mls @ as directed .ROUTE .STK-MED ONE Stop: 06/07/17 08:17 Lactated Ringer's (Ringers, Lactated) Confirm Administered Dose 0 mls @ as directed .ROUTE .STK-MED ONE Stop: 06/07/17 08:17 Lactated Ringer's (Ringers, Lactated) Confirm Administered Dose 1,000 mls @ as directed .ROUTE .STK-MED ONE Stop: 06/07/17 14:00 Lactated Ringer's (Ringers, Lactated) Confirm Administered Dose 1,000 mls @ as directed .ROUTE .STK-MED ONE Stop: 06/07/17 14:00 Cefazolin Sodium/Dextrose 2 gm (/ Premix) 50 mls @ 100 mls/hr IV Q8H [facility] Stop: 06/08/17 12:29 Last Admin: 06/08/17 11:09 Dose: 100 mls/hr Cefazolin Sodium/Dextrose (Ancef) 50 mls @ 100 mls/hr IV Q8H [facility] Stop: 06/08/17 08:59 Cefazolin Sodium/Dextrose 1 gm (/ Premix) 50 mls @ 100 mls/hr IV Q8H [facility] Stop: 06/08/17 12:29 Last Admin: 06/08/17 11:09 Dose: 100 mls/hr Iodine (Iodine 2% Mild Tincture) Confirm Administered Dose 30 ml .ROUTE .STK- MED ONE Stop: 06/07/17 08:50 Ketamine HCl (Ketalar) Confirm Administered Dose 500 mg .ROUTE .STK-MED ONE Stop: 06/07/17 08:37 Ketorolac Tromethamine (Toradol) 15 mg IVPUSH Q6H PRN PRN Reason: Pain Last Admin: 06/08/17 08:28 Dose: 15 mg Lidocaine/Sodium Bicarbonate (Buffered Lidocaine 1% In Ns 8.4%) 0.25 ml IV ONETIME PRN PRN Reason: Prior to IV Start Stop: 06/07/17 18:00 Last Admin: 06/07/17 08:35 Dose: 0.25 ml Magnesium Hydroxide (Milk Of Magnesia) 30 ml PO BID PRN PRN Reason: Constipation Midazolam HCl (Versed 1 Mg/Ml) Confirm Administered Dose 2 mg .ROUTE .STK-MED ONE Stop: 06/07/17 08:18 Midazolam HCl (Versed 1 Mg/Ml) Confirm Administered Dose 2 mg .ROUTE .STK-MED ONE Stop: 06/07/17 10:31 Morphine Sulfate (Morphine) 2 mg IVPUSH Q2H PRN PRN Reason: Breakthrough Pain Last Admin: 06/08/17 12:28 Dose: 2 mg Morphine Sulfate (Duramorph Pf) Confirm Administered Dose 10 mg .ROUTE .STK-MED ONE Stop: 06/07/17 09:57 Morphine Sulfate (Duramorph Pf) Confirm Administered Dose 10 mg .ROUTE .STK-MED ONE Stop: 06/07/17 10:31 Naloxone HCl (Narcan) 0.1 mg IVPUSH Q5M PRN PRN Reason: Oversedation Ondansetron HCl (Zofran) 4 mg IVPUSH Q6H PRN PRN Reason: Nausea/Vomiting Last Admin: 06/08/17 12:14 Dose: 4 mg Ondansetron HCl (Zofran) Confirm Administered Dose 4 mg .ROUTE .STK-MED ONE Stop: 06/07/17 08:17 Ondansetron HCl (Zofran) Confirm Administered Dose 4 mg .ROUTE .STK-MED ONE Stop: 06/07/17 10:30 Oxycodone HCl (Oxycodone) 5 mg PO ONETIME ONE Stop: 06/08/17 12:22 Last Admin: 06/08/17 14:45 Dose: 5 mg Oxycodone/Acetaminophen (Percocet 325-5 Mg) 1 - 2 tab PO Q4H PRN PRN Reason: Pain Oxycodone/Acetaminophen (Percocet 325-5 Mg) 1 - 2 tab PO Q4H PRN PRN Reason: Pain Last Admin: 06/08/17 10:14 Dose: 2 tab Phenylephrine HCl (Phenylephrine In Ns 100 Mcg/Ml) Confirm Administered Dose 1 mg .ROUTE .STK-MED ONE Stop: 06/07/17 09:58 Propofol (Diprivan 20 Ml) Confirm Administered Dose 400 mg .ROUTE .STK-MED ONE Stop: 06/07/17 08:17 Propofol (Diprivan 20 Ml) Confirm Administered Dose 400 mg .ROUTE .STK-MED ONE Stop: 06/07/17 10:31 Propofol (Diprivan 20 Ml) Confirm Administered Dose 200 mg .ROUTE .STK-MED ONE Stop: 06/07/17 12:41 Propofol (Diprivan 20 Ml) Confirm Administered Dose 200 mg .ROUTE .STK-MED ONE Stop: 06/07/17 13:09 Propofol (Diprivan 20 Ml) Confirm Administered Dose 200 mg .ROUTE .STK-MED ONE Stop: 06/07/17 13:09 Senna (Senna) 8.6 mg PO BID PRN PRN Reason: Constipation Sodium Chloride (Saline Flush) 10 ml FLUSH ASDIRECTED PRN PRN Reason: Keep Vein Open Stop: 06/07/17 18:00 Tranexamic Acid (Cyklokapron) Confirm Administered Dose 1,000 mg .ROUTE .STK- MED ONE Stop: 06/07/17 08:50 Last Admin: 06/07/17 13:40 Dose: 1,000 mg Vancomycin HCl (Vancomycin) Confirm Administered Dose 1 gm .ROUTE .STK-MED ONE Stop: 06/07/17 08:50 Last Admin: 06/07/17 13:35 Dose: 1 gm *Q Meaningful Use (DIS) - VTE *Q VTE Criteria *Q: - Stroke *Q Stroke Criteria *Q: - AMI *Q AMI Criteria *Q:
--- NOTE | 2017-06-14 12:06 | PCM.OPNOTE ---
- General Post-Op/Procedure Note Date of Surgery/Procedure: 06/07/17 Operative Procedure(s): right patellofemoral arthroplasty Pre Op Diagnosis: right patello-femoral arthrosis Post-Op Diagnosis: Same Anesthesia Technique: Local, MAC, Spinal Primary Surgeon: Rashaun Morley Anesthesia Provider: Fatmata Mcallister Planner/Scheduler: Sarian Jones Planner/Scheduler: Wanda Cain EBJohn in mLs: 10 Complications: None Condition: Good
--- NOTE | 2017-06-14 13:10 | OR ---
DATE OF OPERATION: 06/07/2017 SURGEON: Rashaun Morley MD OPERATION PERFORMED: Right patellofemoral arthroplasty. PREOPERATIVE DIAGNOSIS: Right patellofemoral arthrosis. POSTOPERATIVE DIAGNOSIS: Right patellofemoral arthrosis. ANESTHESIA: Local MAC with spinal. ANESTHESIA PROVIDER: Dr. Fatmata Mcallister ASSISTANTS: Sarina Jones PA-C and Wanda Cain LPN. ESTIMATED BLOOD LOSS: 10 mL. COMPLICATIONS: None. CONDITION: Stable. DESCRIPTION OF PROCEDURE: The patient was identified in the preop holding area. Proper site was marked and identified by the surgeon. The patient was taken back to the operative theater where after adequate anesthesia, the patient had nonsterile tourniquet applied to the right lower extremity. He was then sterilely prepped and draped in the usual sterile fashion. OR time-out was performed. The patient received 2 g IV Ancef. Right lower extremity was then exsanguinated. Tourniquet was insufflated to 300 mmHg. Standard medial parapatellar incision was made. A medial parapatellar arthrotomy was created, making sure not to disrupt the inter - meniscal ligament or the cartilage secondary to probable patellofemoral arthroplasty. At this time, both the medial and lateral joint lines were identified. There was a small area of change on the lateral condyle, more towards the notch, but did not engage and the patient's knee with small extension. So, at this time, it was decided we do a patellofemoral arthroplasty. At this time, the anterior femoral cutting guide was placed after drill hole was placed in the center of the patella. The rotation was then set and anterior cut was completed. At this time, the trialed cutting jig was then placed for the drill holes and the drill holes were then drilled for a medium femoral component. Next, this template was outlined and then with use of osteotome and rongeur, excess cartilage and subchondral bone was removed in the notch area until the trial implant flushed with the other cartilage. At this time, the patella measured a 24 and was resected to a 14 for a 32 x 10 mm patella. Drill holes were then drilled for Irene asymmetric patella. At this time, trial implants were placed. The patient's knee was brought through full flexion and extension. It was tracking centrally. There were no signs of subluxation or dislocation. No signs of over-stuffing of the patellofemoral joint. At this time, cement was mixed on the back table. All cut surfaces were irrigated with pulse lavage irrigation with Ancef. Next, the 32 x 10 mm patella was cemented into place along with the medial femoral component for the patellofemoral arthroplasty and was impacted into place. It was found to have good bony fixation. It was noted during this case that we did notch the femur , but still most of the cortices were intact. At this time, 3 L of pulse lavage irrigation with Ancef were irrigated through the knee. A periarticular injection was then completed. A #2 barbed suture was used for closure of the medial parapatellar arthrotomy. 2-0 Vicryl was used subcutaneously. Running Monocryl as well as Prineo was used for the skin. The patient tolerated the procedure well and sent to PACU in stable condition. MARIANNA /[id number] YARITZA
== END 2017-06-08 15:10 | disposition home or self-care (01) | DRG 516 ==
LOC: JD.MS 07:48 → JD.SDS 07:48 → EDSTATUS 12:45
PROVIDERS: ADMIT Orthopaedic Surgery; ATTEND Orthopaedic Surgery
PROC: 0SUU09Z Supplement Left Knee Joint, Femoral Surface with Liner, Open Approach (ICD-10-PCS; principal; 2017-06-07)
PROC: 0SUD09C Supplement Left Knee Joint with Liner, Patellar Surface, Open Approach (ICD-10-PCS; 2017-06-07)
DX: M17.11 Unilateral primary osteoarthritis, right knee (principal); Z68.42 Body mass index [BMI] 45.0-49.9, adult; E78.00 Pure hypercholesterolemia, unspecified; G47.33 Obstructive sleep apnea (adult) (pediatric); E66.9 Obesity, unspecified; E55.9 Vitamin D deficiency, unspecified; Z79.899 Other long term (current) drug therapy; Z87.891 Personal history of nicotine dependence; K76.0 Fatty (change of) liver, not elsewhere classified
CPT/HCPCS: 01392; 36415; 73560-26-RT; 73560-RT; 80053; 85027; 85730; 87641; 93005; 94762; 97110-GP; 97116-GP; 97162-GP; 97165-GO; 97530-GP; 97535-GO; A9270-GY; C1713; C1776; J0171; J0690; J0697; J1200; J1885; J2250; J2270; J2405; J2704; J3010; J3370; J3490; J7120

== ENCOUNTER 2017-08-30 17:49 | Emergency (ER) | payer OTHER ==
[2017-08-30 17:58] VITALS: BP 162/116
[2017-08-30] MEDS ORDERED: HYDROmorphone 0.5 MG/0.5 ML SYRINGE IM ONE (18:15)
--- NOTE | 2017-08-30 18:39 | EDM.PDOC ---
<Nisha Stuart - Last Filed: 08/30/17 18:30> ED HPI GENERAL MEDICAL PROBLEM - General Chief Complaint: Lower Extremity Injury/Pain Stated Complaint: R KNEE INJURY Time Seen by Provider: 08/30/17 17:58 - History of Present Illness INITIAL COMMENTS - FREE TEXT/NARRATIVE: Patient is a 42 year old male who presents to ED today for complaints of right knee pain. Patient is 2 months post knee cap replacement done by Dr. Morley. Patient returned to work one week ago and has minor knee pain, but today reports he stepped wrong and his knee twisted. He currently rates his pain a 7/ 10, with the majority of the pain on the lateral side of his knee. He does not remember which way direction his knee twisted. He has a follow up appointment scheduled with Dr. Morley this September 03, and has not contacted with today. He has taken ibuprofen for the pain with no relief. He denies numbness or tingling in lower leg, SOB, or chest pain. 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 Right Knee Pain Score (Numeric/FACES): 7 - Related Data Allergies Allergy/AdvReac Type Severity Reaction Status Date / Time No Known Allergies Allergy Verified 08/30/17 17:54 Home Meds: Home Meds Cholecalciferol (Vitamin D3) [Vitamin D3] 5,000 unit PO BEDTIME 06/04/17 [ History] Aspirin [Ecotrin] 325 mg PO BID #70 tab.ec 06/08/17 [Rx] Bisacodyl [Dulcolax] 5 mg PO DAILY PRN tablet 06/08/17 [Rx] Cyclobenzaprine [Flexeril] 10 mg PO TID PRN #40 tablet 06/08/17 [Rx] Docusate Sodium [Colace] 100 mg PO BID cap 06/08/17 [Rx] Famotidine [Pepcid] 20 mg PO Q12H tablet 06/08/17 [Rx] Magnesium Hydroxide [Milk of Magnesia] 30 ml PO BID PRN cup 06/08/17 [Rx] Sennosides [Senna] 8.6 mg PO BID PRN tablet 06/08/17 [Rx] Acetaminophen/HYDROcodone [[place] 325-5 MG] 1 tab PO Q6H PRN #20 tablet 08/30/17 [Rx] Past Medical History - Past Health History Medical/Surgical History: Denies Medical/Surgical History HEENT History: Reports: None Cardiovascular History: Reports: High Cholesterol Respiratory History: Reports: Sleep Apnea Other Respiratory History: Patient is waiting for approval for CPAP. Gastrointestinal History: Reports: None Other Gastrointestinal History: Fatty liver, abnormal liver function Genitourinary History: Reports: None Musculoskeletal History: Reports: Other (See Below) Other Musculoskeletal History: Patellar instability Neurological History: Reports: None Psychiatric History: Reports: None Endocrine/Metabolic History: Reports: Obesity/BMI 30+, Vitamin D Deficiency, Other (See Below) Hematologic History: Reports: None Immunologic History: Reports: None Oncologic (Cancer) History: Reports: None Dermatologic History: Reports: None - Past Surgical History Head Surgeries/Procedures: Reports: None HEENT Surgical History: Reports: Other (See Below) Other HEENT Surgeries/Procedures: Dental extractions Cardiovascular Surgical History: Reports: None Respiratory Surgical History: Reports: None GI Surgical History: Reports: None Male Surgical History: Reports: None Neurological Surgical History: Reports: None Musculoskeletal Surgical History: Reports: Other (See Below) Other Musculoskeletal Surgeries/Procedures:: Right knee arthroscopy Oncologic Surgical History: Reports: None Dermatological Surgical History: Reports: None Social & Family History - Family History Family Medical History: Noncontributory - Tobacco Use Smoking Status *Q: Former Smoker Years of Tobacco use: 20 Packs/Tins Daily: 0.5 Used Tobacco, but Quit: No Month Tobacco Last Used: april 2017. - Caffeine Use Caffeine Use: Reports: Soda Other Caffeine Use: about 5 Qday. - Alcohol Use Days Per Week of Alcohol Use: 0 Number of Drinks Per Day: 0 Total Drinks Per Week: 0 - Recreational Drug Use Recreational Drug Use: No Drug Use in Last 12 Months: No Review of Systems - Review of Systems Respiratory: Reports: No Symptoms Cardiovascular: Reports: No Symptoms Musculoskeletal: Reports: Joint Pain (right knee) Neurological: Reports: Difficulty Walking (due to knee pain). Denies: Numbness , Tingling ED EXAM, GENERAL - Physical Exam Exam Limited By: No Limitations General Appearance: Alert, Mild Distress Respiratory/Chest: No Respiratory Distress, Lungs Clear, Normal Breath Sounds Cardiovascular: Normal Peripheral Pulses, Regular Rate, Rhythm Extremities: No Pedal Edema, Joint Swelling (right knee), Limited Range of Motion (due to knee pain). No: Increased Warmth, Redness Course - Vital Signs Last Recorded V/S: Last Vital Signs Temp 97.1 F 08/30/17 17:54 Pulse 104 H 08/30/17 17:54 Resp 20 08/30/17 17:54 BP 162/116 H 08/30/17 17:54 Pulse Ox 98 08/30/17 17:54 - Orders/Labs/Meds Orders: Active Orders 24 hr Category Date Time Status Knee Min 4V Rt [CR] Stat Exams 08/30/17 18:15 Taken Meds: Medications Discontinued Medications Generic Name Dose Route Start Last Admin Trade Name Freq PRN Reason Stop Dose Admin Hydrocodone Bitart/Acetaminophen 1 tab 08/30/17 19:03 08/30/17 19:11 [place] 325-5 Mg PO 08/30/17 19:04 1 tab ONETIME ONE Administration Hydromorphone HCl 0.5 mg 08/30/17 18:15 08/30/17 18:27 Dilaudid IM 08/30/17 18:16 0.5 mg ONETIME ONE Administration Departure - Departure Disposition: Home, Self-Care 01 Clinical Impression: Knee pain, right Qualifiers: Chronicity: acute Qualified Code(s): M25.561 - Pain in right knee Lateral knee pain Qualifiers: Laterality: right Qualified Code(s): M25.561 - Pain in right knee - Discharge Information Prescriptions: Acetaminophen/HYDROcodone [[place] 325-5 MG] 1 tab PO Q6H PRN #20 tablet PRN Reason: Pain (Severe 7-10) Instructions: Crutch Use, Adult, [id number], Knee Pain, Adult, Knee Immobilizer, [id number], Pain Medicine Instructions, [id number], Knee Pain, [id number]-[id number], Joint Pain, [id number] Referrals: Sisi Santos DO [Primary Care Provider] - Forms: ED Department Discharge, ED Return to Work/School Form Additional Instructions: As discussed will have you be nonweightbearing until evaluated by Dr. Morley this coming Wednesday. Utilize crutches to ambulate. Suggest using the metal frame knee brace that was provided to you to ensure no abduction or abduction of the knee. Apply ice to the affected knee 4 times daily, 20 minutes in duration, do not apply ice directly on the skin. For pain take Tylenol and ibuprofen in alternating fashion. For severe pain take [place] one tab every 6 hours. Do not take Tylenol and [place] together. Do not drive this evening nor while taking the [place]. Elevate the affected extremity when able to reduce any swelling and pain. Return to the ED if you develop any new or worsening symptoms. - My Orders Last 24 Hours: My Active Orders 08/30/17 18:15 Knee Min 4V Rt [CR] Stat - Assessment/Plan Last 24 Hours: My Active Orders 08/30/17 18:15 Knee Min 4V Rt [CR] Stat <Haroldo Snell O - Last Filed: 08/30/17 21:04> Review of Systems - Review of Systems Review Of Systems: ROS reveals no pertinent complaints other than HPI. ED EXAM, GENERAL - Physical Exam Exam: See Below Extremities: Other (no pain to the right posterior calf or swelling noted. ) Course - Re-Assessments/Exams Free Text/Narrative Re-Assessment/Exam: Agree with history of present illness and physical assessment by Nisha ALDRICH. Ordered Dilaudid 0.5 mg IM. X-ray of the right knee will be obtained. X-ray of the right knee reviewed with Dr. fernandez with no significant bony abnormalities noted. Prosthetic hardware intact appears to be in proper anatomical position. Pain has decreased. Patient has knee brace at home. Ordered crutches for discharge. Discharge instructions as documented. Departure - Departure Time of Disposition: 19:03 Condition: Good
[2017-08-30] MEDS ORDERED: Acetaminophen/HYDROcodone 325-5 MG Tab PO ONE (19:03)
--- NOTE | 2017-08-31 07:22 | CR ---
Right knee: Four views of the right knee were obtained. Comparison: Prior postoperative right knee exam of 06/07/17. Stable prosthesis is noted within the patellofemoral joint. No acute fracture, dislocation or other bony abnormality is seen. Impression: 1. Patellofemoral prosthesis. 2. Nothing acute is appreciated on right knee exam. Diagnostic code #2
== END 2017-08-30 19:23 | disposition home or self-care (01) ==
LOC: JD.ED 17:49
DX: M25.561 Pain in right knee (principal); I10 Essential (primary) hypertension; G47.30 Sleep apnea, unspecified; E66.9 Obesity, unspecified; Z87.891 Personal history of nicotine dependence; Z98.890 Other specified postprocedural states; Z79.899 Other long term (current) drug therapy; X50.1XXA Overexertion from prolonged static or awkward postures, initial encounter; Z68.42 Body mass index [BMI] 45.0-49.9, adult
CPT/HCPCS: 73564; 96372; 99283; A9270; J1170

== ENCOUNTER 2017-09-07 10:38 | Emergency (ER) | payer OTHER ==
--- NOTE | 2017-09-07 10:48 | EDM.PDOC ---
ED HPI GENERAL MEDICAL PROBLEM - General Chief Complaint: Trauma Stated Complaint: [facility] Time Seen by Provider: 09/07/17 10:45 Source of Information: Reports: Patient History Limitations: Reports: No Limitations - History of Present Illness INITIAL COMMENTS - FREE TEXT/NARRATIVE: The patient presents by ambulance for a fall, headache, neck pain, and thoracic and lumbar back pain. He was at work and he went back into his shop and the door did not shut behind him and he turned to shut it and he fell. He is unsure if he tripped or lost balance. He did hit his head and he has neck pain and upper back pain. He has no numbness or weakness. He has no bowel or bladder problems. He was brought in by EMS on a spine board with a c-collar. He had right knee surgery in June. He has no more pain then normal in his right knee. Onset: Sudden Duration: Minutes: Location: Reports: Head, Neck, Back (Upper) Quality: Reports: Sharp Severity: Moderate Improves with: Reports: None Worsens with: Reports: None Context: Reports: Activity (He was at work and fell) Associated Symptoms: Reports: No Other Symptoms Middle Back Pain Score (Numeric/FACES): 4 Headache Pain Score (Numeric/FACES): 3 - Related Data Allergies Allergy/AdvReac Type Severity Reaction Status Date / Time No Known Allergies Allergy Verified 09/07/17 10:58 Home Meds: Home Meds Acetaminophen/HYDROcodone [[place] 325-5 MG] 1 tab PO Q6H PRN #20 tablet 08/30/17 [Rx] Cyclobenzaprine [Flexeril] 10 mg PO TID PRN #20 tab 09/07/17 [Rx] Hydrocodone/Acetaminophen [Hydrocodon-Acetaminophen 5-325] 1 - 2 each PO Q6HR PRN #20 tablet 09/07/17 [Rx] Past Medical History - Past Health History Medical/Surgical History: Denies Medical/Surgical History HEENT History: Reports: None Cardiovascular History: Reports: High Cholesterol Respiratory History: Reports: Sleep Apnea Other Respiratory History: Patient is waiting for approval for CPAP. Gastrointestinal History: Reports: None Other Gastrointestinal History: Fatty liver, abnormal liver function Genitourinary History: Reports: None Musculoskeletal History: Reports: Other (See Below) Other Musculoskeletal History: Patellar instability Neurological History: Reports: None Psychiatric History: Reports: None Endocrine/Metabolic History: Reports: Obesity/BMI 30+, Vitamin D Deficiency, Other (See Below) Hematologic History: Reports: None Immunologic History: Reports: None Oncologic (Cancer) History: Reports: None Dermatologic History: Reports: None - Past Surgical History Head Surgeries/Procedures: Reports: None HEENT Surgical History: Reports: Other (See Below) Other HEENT Surgeries/Procedures: Dental extractions Cardiovascular Surgical History: Reports: None Respiratory Surgical History: Reports: None GI Surgical History: Reports: None Male Surgical History: Reports: None Neurological Surgical History: Reports: None Musculoskeletal Surgical History: Reports: Other (See Below) Other Musculoskeletal Surgeries/Procedures:: Right knee arthroscopy Oncologic Surgical History: Reports: None Dermatological Surgical History: Reports: None Social & Family History - Family History Family Medical History: Noncontributory - Tobacco Use Smoking Status *Q: Former Smoker Years of Tobacco use: 20 Packs/Tins Daily: 0.5 Used Tobacco, but Quit: No Month Tobacco Last Used: april 2017. - Caffeine Use Caffeine Use: Reports: Soda Other Caffeine Use: about 5 Qday. - Alcohol Use Days Per Week of Alcohol Use: 0 Number of Drinks Per Day: 0 Total Drinks Per Week: 0 - Recreational Drug Use Recreational Drug Use: No Drug Use in Last 12 Months: No Review of Systems - Review of Systems Review Of Systems: See Below Constitutional: Reports: No Symptoms Eyes: Reports: No Symptoms Ears: Reports: No Symptoms Nose: Reports: No Symptoms Mouth/Throat: Reports: No Symptoms Respiratory: Reports: No Symptoms Cardiovascular: Reports: No Symptoms GI/Abdominal: Reports: No Symptoms Genitourinary: Reports: No Symptoms Musculoskeletal: Reports: Neck Pain, Back Pain Skin: Reports: No Symptoms Neurological: Reports: Headache ED EXAM, GENERAL - Physical Exam Exam: See Below Exam Limited By: No Limitations General Appearance: Alert, No Apparent Distress Ears: Normal External Exam Nose: Normal Inspection Throat/Mouth: Normal Inspection Head: Other (Mild pain upon palpation to the left occipital region) Neck: Tender Lateral (left side) Respiratory/Chest: No Respiratory Distress, Lungs Clear, Normal Breath Sounds Cardiovascular: Regular Rate, Rhythm, No Edema, No Murmur GI/Abdominal: Soft, Non-Tender, No Organomegaly, No Mass Back Exam: Other (Pain upon palpation to the thoracic spine and upper lumbar spine.) Extremities: Other (Pain upon palpation to the right knee) Neurological: Alert, Oriented, No Motor/Sensory Deficits Course - Vital Signs Last Recorded V/S: Last Vital Signs Temp 98.4 F 09/07/17 10:45 Pulse 87 09/07/17 10:45 Resp 15 09/07/17 10:45 BP 148/99 H 09/07/17 10:45 Pulse Ox 96 09/07/17 10:45 - Orders/Labs/Meds Meds: Medications Discontinued Medications Generic Name Dose Route Start Last Admin Trade Name Romana PRN Reason Stop Dose Admin Fentanyl 100 mcg 09/07/17 10:51 09/07/17 11:10 Sublimaze IVPUSH 09/07/17 10:52 100 mcg ONETIME ONE Administration - Re-Assessments/Exams Free Text/Narrative Re-Assessment/Exam: 09/07/17 14:[address] of his head, cervical spine, thoracic spine, and lumbar spine. He has an IV so I ordered dilaudid 0.5mg IV. 09/07/17 14:13 CT of his lumbar spine shows unilateral spondylolytic defect at L5-S1. Uncertain if this is chronic or acute. MRI would be needed to differentiate if clinically needed. The CT of her thoracic spine shows mild degenerative change. Nothing acute is appreciated on CT study of thoracic spine. Incidental findings. Nothing acute is appreciated on CT study of the cervical spine. The CT of his head shows nothing acute is seen on noncontrast head CT study. I have ordered an MRI of his lumbar spine. 09/07/17 14:47 The MRI shows unilateral spondylolytic defect at L5-S1 showing no bone marrow edema and this is therefore felt to be old. Slight degenerative apophyseal change as noted above. He still has some pain. I will give him another a dose of fentanyl. Departure - Departure Time of Disposition: 14:50 Disposition: Home, Self-Care 01 Condition: Good Clinical Impression: Fall Qualifiers: Encounter type: initial encounter Qualified Code(s): W19.XXXA - Unspecified fall, initial encounter Cervical strain Qualifiers: Encounter type: initial encounter Qualified Code(s): S16.1XXA - Strain of muscle, fascia and tendon at neck level, initial encounter Thoracic myofascial strain Qualifiers: Encounter type: initial encounter Qualified Code(s): S29.019A - Strain of muscle and tendon of unspecified wall of thorax, initial encounter Lumbar strain Qualifiers: Encounter type: initial encounter Qualified Code(s): S39.012A - Strain of muscle, fascia and tendon of lower back, initial encounter - Discharge Information Prescriptions: Hydrocodone/Acetaminophen [Hydrocodon-Acetaminophen 5-325] 1 - 2 each PO Q6HR PRN #20 tablet PRN Reason: Pain Cyclobenzaprine [Flexeril] 10 mg PO TID PRN #20 tab PRN Reason: Pain Referrals: Sisi Santos DO [Primary Care Provider] - 1 Week Forms: ED Department Discharge, ED Return to Work/School Form Additional Instructions: Ice the areas that hurt for 15 minutes every other hour while awake for 2 days. Take the flexeril and hydrocodone as needed for pain. Follow up with your doctor in 1 week. Please return if you are worse.
[2017-09-07 10:51] VITALS: BP 148/99
[2017-09-07] MEDS ORDERED: fentaNYL 100 MCG/2 ML SDV IVPUSH ONE ×2 (10:51→14:51)
--- NOTE | 2017-09-07 11:39 | CT ---
CT cervical spine Technique: Multiple axial sections were obtained from above C1 inferiorly to the top of T2. Reconstructed sagittal and coronal images were reviewed. Findings: Vertebral body heights and disc spaces are fairly well preserved. Vertebral bodies and posterior arches are intact. No bony central or bony neural foraminal stenosis is seen. No abnormal subluxation is seen on the reconstructed sagittal images. Minimal scattered anterior endplate osteophytes are seen. Impression: 1. Incidental findings. Nothing acute is appreciated on CT study of the cervical spine. Diagnostic code #2
--- NOTE | 2017-09-07 11:42 | CT ---
Head CT Technique: Multiple axial sections through the brain were obtained. Intravenous contrast was not utilized. Comparison: No previous intracranial imaging. Findings: Ventricles along with basal cisterns and sulci over convexities are within normal limits for the patient's age. No abnormal parenchymal densities are seen. No evidence of intracranial hemorrhage. No midline shift or mass effect is seen. Bone window settings were reviewed which shows the visualized sinuses to appear clear. No acute calvarial abnormality is seen. Impression: 1. Nothing acute is seen on noncontrast head CT study. Diagnostic code #1
--- NOTE | 2017-09-07 11:46 | CT ---
CT lumbar spine Technique: Multiple axial sections through the lumbar spine were obtained. Reconstructed coronal and sagittal images were reviewed. Comparison: No prior lumbar spine imaging. Findings: Vertebral body heights and disc spaces are maintained. Mild diffuse disc bulge at L5-S1 which is felt to be physiologic. No traumatic disc herniation is identified. No central canal stenosis is seen. Neural foramina are patent. Spondylolytic defect is identified on the left side within the pars interarticularis. Uncertain if this is acute or chronic. MRI would be needed to differentiate by looking for bone marrow edema. No additional fracture or other abnormality is seen. Impression: 1. Unilateral spondylolytic defect at L5-S1. Uncertain if this is chronic or acute. As mentioned above, MRI would be needed to differentiate if clinically needed. 2. No additional abnormality is identified. Diagnostic code #3
--- NOTE | 2017-09-07 11:47 | CT ---
CT thoracic spine Technique: Multiple axial sections through the thoracic spine were obtained. Reconstructed sagittal and coronal images were reviewed. Findings: Mild scattered endplate osteophytes are seen. Minimal scattered disc space narrowing is seen within the thoracic spine. Slight endplate concavity is noted of T9 which is felt to be old and incidental. No fracture is identified. No abnormal subluxation is seen on the reconstructed sagittal images. Impression: 1. Mild degenerative change. Nothing acute is appreciated on CT study of the thoracic spine. Diagnostic code #2
--- NOTE | 2017-09-07 14:18 | MR ---
MRI lumbar spine Technique: T2 and T1 weighted axial images were obtained from above the L1-L2 disc inferiorly to the L5-S1 disc. T1, T2 and fat suppressed inversion recovery sagittal images were also obtained through the lumbar spine. Findings: T12-L1: Posterior disc is preserved. No central canal stenosis or neural foraminal stenosis is seen. L1-L2: Posterior disc is preserved. No central canal stenosis or neural foraminal stenosis is seen. L2-L3: Posterior disc is preserved. No central canal stenosis or neural foraminal stenosis is seen. L3-L4: Posterior disc is preserved. No central canal stenosis or neural foraminal stenosis is seen. Minimal degenerative apophyseal change is seen on the left side. L4-L5: Posterior disc has a planar margin. No central canal stenosis or neural foraminal stenosis is seen. L5-S1: Spondylolytic defect is seen on the left side. No significant bone marrow edema is seen in this area and this is therefore felt to be old. There is slight widening of the apophyseal joint on the left side compatible with degenerative change. Posterior disc is preserved. No central canal stenosis or neural foraminal stenosis is seen. Conus medullaris and cauda equina shows no abnormal signal or mass. No bone marrow edema is seen within any other vertebral bodies. Impression: 1. Unilateral spondylolytic defect at L5-S1 showing no bone marrow edema and this is therefore felt to be old. 2. Slight degenerative apophyseal change as noted above. Diagnostic code #2
== END 2017-09-07 15:10 | disposition home or self-care (01) ==
LOC: JD.ED 10:38 → SUPCPDRO 10:38 → JD.ED 15:10
DX: S16.1XXA Strain of muscle, fascia and tendon at neck level, initial encounter (principal); S29.019A Strain of muscle and tendon of unspecified wall of thorax, initial encounter; S39.012A Strain of muscle, fascia and tendon of lower back, initial encounter; E78.00 Pure hypercholesterolemia, unspecified; G47.30 Sleep apnea, unspecified; W19.XXXA Unspecified fall, initial encounter; Y92.89 Other specified places as the place of occurrence of the external cause; Y99.0 Civilian activity done for income or pay
CPT/HCPCS: 70450; 72125; 72128; 72131; 72148; 96374; 96376; 99285; J3010

== ENCOUNTER 2019-04-09 21:41 | Emergency (ER) | payer OTHER, BC ==
[2019-04-09 22:23] VITALS: BP 161/105; PULSE 85
--- NOTE | 2019-04-09 22:52 | EDM.PDOC ---
ED HPI GENERAL MEDICAL PROBLEM - General Chief Complaint: Diabetic Complaint Stated Complaint: BLOOD SUGAR Time Seen by Provider: 04/09/19 22:40 - History of Present Illness INITIAL COMMENTS - FREE TEXT/NARRATIVE: 43-year-old male presents emergency room with elevated blood sugar. The patient is a known type II diabetic he used to be on metformin 1000 mg twice a day however he stopped taking these about 2 months ago. The patient has been seen [facility] but he gets frustrated going there because they have multiple providers never sees the same person he keeps getting conflicting information. Patient has a history of hypertension and hyperlipidemia. His Accu- Chek at home tonight was in the mid 400s. Right Lower Back Pain Score (Numeric/FACES): 3 - Related Data Allergies Allergy/AdvReac Type Severity Reaction Status Date / Time No Known Allergies Allergy Verified 09/07/17 10:58 Home Meds: Home Meds metFORMIN [Glucophage XR] 1,000 mg PO BID 04/09/19 [History] Past Medical History - Past Health History Medical/Surgical History: Denies Medical/Surgical History HEENT History: Reports: None Cardiovascular History: Reports: High Cholesterol, Hypertension Respiratory History: Reports: Sleep Apnea Other Respiratory History: Patient is waiting for approval for CPAP. Gastrointestinal History: Reports: None Other Gastrointestinal History: Fatty liver, abnormal liver function Genitourinary History: Reports: None Musculoskeletal History: Reports: Other (See Below) Other Musculoskeletal History: Patellar instability Neurological History: Reports: None Psychiatric History: Reports: None Endocrine/Metabolic History: Reports: Diabetes, Type II, Obesity/BMI 30+, Vitamin D Deficiency, Other (See Below) Hematologic History: Reports: None Immunologic History: Reports: None Oncologic (Cancer) History: Reports: None Dermatologic History: Reports: None - Past Surgical History Head Surgeries/Procedures: Reports: None HEENT Surgical History: Reports: Other (See Below) Other HEENT Surgeries/Procedures: Dental extractions Cardiovascular Surgical History: Reports: None Respiratory Surgical History: Reports: None GI Surgical History: Reports: None Male Surgical History: Reports: None Neurological Surgical History: Reports: None Musculoskeletal Surgical History: Reports: Other (See Below) Other Musculoskeletal Surgeries/Procedures:: Right knee arthroscopy Oncologic Surgical History: Reports: None Dermatological Surgical History: Reports: None Social & Family History - Family History Family Medical History: Noncontributory - Tobacco Use Smoking Status *Q: Current Every Day Smoker Years of Tobacco use: 23 Packs/Tins Daily: 0.4 - Caffeine Use Caffeine Use: Reports: Soda Other Caffeine Use: drinks regular pop-pepsi - Recreational Drug Use Recreational Drug Use: No ED ROS GENERAL - Review of Systems Review Of Systems: See Below Constitutional: Reports: No Symptoms HEENT: Reports: No Symptoms Respiratory: Reports: No Symptoms Cardiovascular: Reports: No Symptoms Endocrine: Reports: No Symptoms GI/Abdominal: Reports: No Symptoms : Reports: No Symptoms Musculoskeletal: Reports: No Symptoms ED EXAM GENERAL NO PERIP PULSE - Physical Exam Exam: See Below Exam Limited By: No Limitations General Appearance: Alert, No Apparent Distress Head: Atraumatic, Normocephalic Neck: Normal Inspection, Supple, Non-Tender, Full Range of Motion Respiratory/Chest: No Respiratory Distress, Lungs Clear Cardiovascular: Regular Rate, Rhythm, No Edema, No Murmur GI/Abdominal: Normal Bowel Sounds, Soft, Non-Tender, Other (He is obese). No: No Abnormal Bruit Back Exam: Normal Inspection. No: CVA Tenderness (L), CVA Tenderness (R) Neurological: Alert, Oriented, Normal Cognition Course - Vital Signs Last Recorded V/S: Last Vital Signs Temp 36.4 C 04/09/19 22:20 Pulse 85 04/09/19 22:20 Resp 20 04/09/19 22:20 BP 161/105 H 04/09/19 22:20 Pulse Ox 97 04/09/19 22:20 - Orders/Labs/Meds Labs: Laboratory Tests 04/09/19 Range/Units 23:10 Sodium 128 L (136-145) mEq/L Potassium 3.9 (3.5-5.1) mEq/L Chloride 95 L (98-107) mEq/L Carbon Dioxide 17 L (21-32) mEq/L Anion Gap 19.9 H (5-15) BUN 13 (7-18) mg/dL Creatinine TNP Est Cr Clr Drug Dosing TNP Estimated GFR (MDRD) TNP BUN/Creatinine Ratio 13.0 L (14-18) Glucose 572 H* (74-106) mg/dL Calcium 7.7 L (8.5-10.1) mg/dL - Re-Assessments/Exams Free Text/Narrative Re-Assessment/Exam: 04/10/19 00:01 Patient is been on metformin size a gram twice a day he stopped this a couple months ago. When he really needs to do is get back on his metformin we will have him start 500 mg twice daily. He has a second home also strongly encouraged him to follow-up with Hospital clinic and get his lipids and hypertension to dealt with. We discussed insulin for his elevated blood sugar at this point but I think this can be a complicated course and he's get more benefit from starting on the metformin. We can give him a dose of insulin right now however I suspect is used to running very high blood sugars and this is can be a short-term fix the can't further complicate restarting his metformin. He agrees to follow-up at the Hospital clinic this next week he will start his metformin tonight 500 mg twice daily Departure - Departure Time of Disposition: 00:03 Disposition: Home, Self-Care 01 Clinical Impression: Poorly controlled type 2 diabetes mellitus, Hyperlipidemia - Discharge Information Referrals: Laura Francisco MD [Primary Care Provider] - Forms: ED Department Discharge Additional Instructions: Return to the emergency room with any questions problems or worsening symptoms. Restart your metformin 500 mg twice daily. Follow-up in the Hospital clinic as soon as she can to address your out-of- control diabetes, pressure, hyperlipidemia, and suspected metabolic syndrome. Call the clinic first thing in the morning [phone].
== END 2019-04-10 00:13 | disposition home or self-care (01) ==
LOC: JD.ED 21:41 → SUPCPDRO 21:41 → JD.ED 04-10 00:13
DX: E11.65 Type 2 diabetes mellitus with hyperglycemia (principal); I10 Essential (primary) hypertension; E66.9 Obesity, unspecified; F17.210 Nicotine dependence, cigarettes, uncomplicated; Z79.84 Long term (current) use of oral hypoglycemic drugs; Z68.42 Body mass index [BMI] 45.0-49.9, adult
CPT/HCPCS: 36415; 80048; 99283

== ENCOUNTER 2019-08-12 08:59 | Emergency (ER) | payer OTHER ==
--- NOTE | 2019-08-12 09:20 | EDM.PDOC ---
ED HPI GENERAL MEDICAL PROBLEM - General Chief Complaint: Headache Stated Complaint: MIGRAINE Time Seen by Provider: 08/12/19 09:18 Source of Information: Reports: Patient, RN Notes Reviewed - History of Present Illness INITIAL COMMENTS - FREE TEXT/NARRATIVE: 43-year-old male comes in with right frontal headache. He has been having these intermittently for the past 6 months or so. Usually they last a day or so and then go away. This one has been present for 3 days and has not gone away. He does have nausea with that. He has not been vomiting. He has not been recently ill. No fever or chills. No focal neurologic symptoms. Headache Pain Score (Numeric/FACES): 6 - Related Data Allergies Allergy/AdvReac Type Severity Reaction Status Date / Time No Known Allergies Allergy Verified 08/12/19 09:13 Home Meds: Home Meds metFORMIN [Glucophage XR] 1,000 mg PO BID 04/09/19 [History] Fish Oil/[place]-3 Fatty Acids [Fish Oil 1,000 MG] 1,000 mg PO DAILY 08/12/19 [ History] Multivitamin [Multivitamins] 1 each PO DAILY 08/12/19 [History] Simvastatin 20 mg PO DAILY 08/12/19 [History] Varenicline Tartrate [Chantix] 1 tab PO DAILY 08/12/19 [History] lisinopriL [Lisinopril] 10 mg PO DAILY 08/12/19 [History] Past Medical History - Past Health History Medical/Surgical History: Denies Medical/Surgical History HEENT History: Reports: None Cardiovascular History: Reports: High Cholesterol, Hypertension Respiratory History: Reports: Sleep Apnea Other Respiratory History: Patient is waiting for approval for CPAP. Gastrointestinal History: Reports: None Other Gastrointestinal History: Fatty liver, abnormal liver function Genitourinary History: Reports: None Musculoskeletal History: Reports: Arthritis Other Musculoskeletal History: Patellar instability Neurological History: Reports: None Psychiatric History: Reports: None Endocrine/Metabolic History: Reports: Diabetes, Type II, Obesity/BMI 30+, Vitamin D Deficiency Hematologic History: Reports: None Immunologic History: Reports: None Oncologic (Cancer) History: Reports: None Dermatologic History: Reports: None - Past Surgical History Head Surgeries/Procedures: Reports: None HEENT Surgical History: Reports: Oral Surgery Cardiovascular Surgical History: Reports: None Respiratory Surgical History: Reports: None GI Surgical History: Reports: None Male Surgical History: Reports: None Neurological Surgical History: Reports: None Musculoskeletal Surgical History: Reports: Arthroscopic Knee, Other (See Below) Other Musculoskeletal Surgeries/Procedures:: Right knee arthroscopy Oncologic Surgical History: Reports: None Dermatological Surgical History: Reports: None Social & Family History - Family History Family Medical History: Noncontributory - Tobacco Use Smoking Status *Q: Current Every Day Smoker Years of Tobacco use: 24 Packs/Tins Daily: 0.2 - Caffeine Use Caffeine Use: Reports: Energy Drinks, Soda Other Caffeine Use: drinks regular pop-pepsi - Recreational Drug Use Recreational Drug Use: No ED ROS GENERAL - Review of Systems Review Of Systems: See Below Constitutional: Denies: Fever, Chills HEENT: Denies: Throat Pain Respiratory: Denies: Shortness of Breath Cardiovascular: Denies: Chest Pain GI/Abdominal: Reports: Nausea. Denies: Abdominal Pain, Vomiting Musculoskeletal: Denies: Shoulder Pain, Arm Pain Skin: Reports: No Symptoms Neurological: Reports: Headache. Denies: Dizziness, Numbness, Tingling, Trouble Speaking, Difficulty Walking, Weakness ED EXAM, NEURO - Physical Exam Exam: See Below General Appearance: Alert, Mild Distress Eye Exam: Bilateral Eye: PERRL Ears: Normal External Exam Nose: Normal Inspection Throat/Mouth: Normal Inspection Head Exam: Atraumatic. No: Facial Swelling Neck: Supple, Full Range of Motion Respiratory/Chest: No Respiratory Distress, Lungs Clear, Normal Breath Sounds Cardiovascular: Regular Rate, Rhythm Neurological: Alert, No Motor/Sensory Deficits, Other (Finger to nose testing normal) Extremities: Normal Inspection, Normal Range of Motion Skin Exam: Warm, Dry, Normal Color, No Rash Course - Vital Signs Last Recorded V/S: Last Vital Signs Temp 97.8 F 08/12/19 09:10 Pulse 63 08/12/19 11:15 Resp 16 08/12/19 11:15 BP 141/80 H 08/12/19 11:15 Pulse Ox 95 08/12/19 11:15 - Orders/Labs/Meds Orders: Active Orders 24 hr Category Date Time Status Peripheral IV Care [RC] . DIRECTED Care 08/12/19 09:29 Active Peripheral IV Insertion Adult [OM.PC] Stat Oth 08/12/19 09:28 Ordered Meds: Medications Discontinued Medications Generic Name Dose Route Start Last Admin Trade Name Freq PRN Reason Stop Dose Admin Dexamethasone 10 mg 08/12/19 10:11 08/12/19 10:20 Dexamethasone IV 08/12/19 10:12 10 mg ONETIME ONE Administration Diphenhydramine HCl 50 mg 08/12/19 09:28 08/12/19 09:43 Benadryl IVPUSH 08/12/19 09:29 50 mg ONETIME ONE Administration Haloperidol Lactate 5 mg 08/12/19 10:11 08/12/19 10:17 Haldol IVPUSH 08/12/19 10:12 5 mg ONETIME ONE Administration Hydromorphone HCl 1 mg 08/12/19 10:43 08/12/19 10:50 Dilaudid IVPUSH 08/12/19 10:44 1 mg ONETIME ONE Administration Sodium Chloride 1,000 mls @ 999 mls/hr 08/12/19 09:30 08/12/19 09:40 Normal Saline IV 999 mls/hr ONETIME VICTORIA Administration Ketorolac Tromethamine 30 mg 08/12/19 09:30 08/12/19 09:42 Toradol IVPUSH 30 mg ONETIME VICTORIA Administration Metoclopramide HCl 10 mg 08/12/19 09:28 08/12/19 09:41 Reglan IVPUSH 08/12/19 09:29 10 mg ONETIME ONE Administration Sodium Chloride 10 ml 08/12/19 09:28 08/12/19 09:42 Saline Flush FLUSH 10 ml ASDIRECTED PRN Administration Keep Vein Open - Re-Assessments/Exams Free Text/Narrative Re-Assessment/Exam: 08/12/19 11:14 Feeling much better at time of discharge, [place] is about gone, have given multiple IV meds and 1 liter NS. There is a plan for imaging, waiting to get approval [facility] His headaches do go completely away for days at a time, his neuro exam is normal so I do not believe he needs emergent imaging today. Pt is comfortable with that plan. Departure - Departure Time of Disposition: 11:12 Disposition: Home, Self-Care 01 Condition: Fair Clinical Impression: Migraine - Discharge Information Instructions: Migraine Headache, [id number] Referrals: Susan Hdz PA-C [Primary Care Provider] - Forms: ED Department Discharge Additional Instructions: You have been given multiple sedating meds while here in the ED today. Rest. Do not drive the remainder of today. [facility]. Return to ED as needed if symptoms worsening in any way. Sepsis Event Note - Evaluation Sepsis Screening Result: No Definite Risk - Focused Exam Date Exam was Performed: 08/13/19 Time Exam was Performed: 07:41 - My Orders Last 24 Hours: My Active Orders 08/12/19 09:28 Peripheral IV Insertion Adult [OM.PC] Stat 08/12/19 09:29 Peripheral IV Care [RC] . DIRECTED - Assessment/Plan Last 24 Hours: My Active Orders 08/12/19 09:28 Peripheral IV Insertion Adult [OM.PC] Stat 08/12/19 09:29 Peripheral IV Care [RC] . DIRECTED
[2019-08-12] MEDS ORDERED: Sodium Chloride 0.9% 10 ML Syringe FLUSH PRN (09:28)
[2019-08-12] MEDS ORDERED: Metoclopramide 10 MG/2 ML SDV IVPUSH ONE (09:28)
[2019-08-12] MEDS ORDERED: diphenhydrAMINE 50 MG/ML SDV IVPUSH ONE (09:28)
[2019-08-12] MEDS ORDERED: Ketorolac 30 MG/ML SDV IVPUSH SCH (09:30)
[2019-08-12] MEDS ORDERED: Sodium Chloride 0.9% 1,000 ML IV SCH (09:30)
[2019-08-12] MEDS ORDERED: Dexamethasone 4 MG/ML 5 ML MDV IV ONE (10:11)
[2019-08-12] MEDS ORDERED: Haloperidol Lactate 5 MG/ML SDV IVPUSH ONE (10:11)
[2019-08-12] MEDS ORDERED: HYDROmorphone 1 MG/ML Syringe IVPUSH ONE (10:43)
[2019-08-12 11:16] VITALS: BP 141/80; PULSE 63
== END 2019-08-12 11:23 | disposition home or self-care (01) ==
LOC: JD.ED 08:59
DX: G43.909 Migraine, unspecified, not intractable, without status migrainosus (principal); I10 Essential (primary) hypertension; E11.9 Type 2 diabetes mellitus without complications; E78.00 Pure hypercholesterolemia, unspecified; M19.90 Unspecified osteoarthritis, unspecified site; E66.9 Obesity, unspecified; Z68.41 Body mass index [BMI] 40.0-44.9, adult; F17.210 Nicotine dependence, cigarettes, uncomplicated; Z79.84 Long term (current) use of oral hypoglycemic drugs; Z79.899 Other long term (current) drug therapy
CPT/HCPCS: 96361; 96374; 96375; 99284; J1100; J1170; J1200; J1630; J1885; J2765; J7030; 99283

== ENCOUNTER 2020-04-02 01:41 | Emergency (ER) | payer OTHER ==
[2020-04-02 01:53] VITALS: BP 159/100; PULSE 87
--- NOTE | 2020-04-02 02:08 | EDM.PDOC ---
ED HPI GENERAL MEDICAL PROBLEM - General Chief Complaint: Respiratory Problem Stated Complaint: poss covid Time Seen by Provider: 04/02/20 02:07 - History of Present Illness INITIAL COMMENTS - FREE TEXT/NARRATIVE: 44-year-old male presents the emergency room with increasing shortness of breath after developing a cough. Patient has had a worsening cough over the last couple of days. This evening he woke up tried to cough some up and had significant shortness of breath. Patient states his taste is diminished no loss of smell. The patient has been working with a coworker with a cough that has not been using a mask nor has the patient. The patient suffers from obesity and type 2 diabetes. He does not know what his blood sugars have been running as he does not monitor them. Patient does not have any chest pain or chest pressure at this time. The patient has not tried any home or [id number] remedies for this. - Related Data Allergies Allergy/AdvReac Type Severity Reaction Status Date / Time No Known Allergies Allergy Verified 08/12/19 09:13 Home Meds: Home Meds metFORMIN [Glucophage XR] 1,000 mg PO BID 04/09/19 [History] Past Medical History - Past Health History Medical/Surgical History: Denies Medical/Surgical History HEENT History: Reports: None Cardiovascular History: Reports: High Cholesterol, Hypertension Respiratory History: Reports: Sleep Apnea Other Respiratory History: Patient is waiting for approval for CPAP. Gastrointestinal History: Reports: None Other Gastrointestinal History: Fatty liver, abnormal liver function Genitourinary History: Reports: None Musculoskeletal History: Reports: Arthritis Other Musculoskeletal History: Patellar instability Neurological History: Reports: None Psychiatric History: Reports: None Endocrine/Metabolic History: Reports: Diabetes, Type II, Obesity/BMI 30+, Vitamin D Deficiency Hematologic History: Reports: None Immunologic History: Reports: None Oncologic (Cancer) History: Reports: None Dermatologic History: Reports: None - Past Surgical History Head Surgeries/Procedures: Reports: None HEENT Surgical History: Reports: Oral Surgery Cardiovascular Surgical History: Reports: None Respiratory Surgical History: Reports: None GI Surgical History: Reports: None Male Surgical History: Reports: None Neurological Surgical History: Reports: None Musculoskeletal Surgical History: Reports: Arthroscopic Knee, Other (See Below) Other Musculoskeletal Surgeries/Procedures:: Right knee arthroscopy Oncologic Surgical History: Reports: None Dermatological Surgical History: Reports: None Social & Family History - Family History Family Medical History: Noncontributory - Tobacco Use Smoking Status *Q: Current Every Day Smoker Years of Tobacco use: 18 Packs/Tins Daily: 0.5 - Caffeine Use Caffeine Use: Reports: None Other Caffeine Use: drinks regular pop-pepsi - Recreational Drug Use Recreational Drug Use: No ED ROS GENERAL - Review of Systems Review Of Systems: See Below Constitutional: Denies: Fever, Chills HEENT: Reports: No Symptoms Respiratory: Reports: Shortness of Breath, Cough Cardiovascular: Reports: No Symptoms Endocrine: Reports: No Symptoms GI/Abdominal: Reports: No Symptoms : Reports: No Symptoms Musculoskeletal: Reports: No Symptoms Skin: Reports: No Symptoms Neurological: Reports: No Symptoms Psychiatric: Reports: No Symptoms ED EXAM, GENERAL - Physical Exam Exam: See Below Exam Limited By: No Limitations General Appearance: Alert, No Apparent Distress, Obese Eye Exam: Bilateral Eye: Normal Inspection Ears: Normal External Exam, Normal Canal, Hearing Grossly Normal, Normal TMs Nose: Normal Inspection, Normal Mucosa, No Blood Throat/Mouth: Normal Inspection, Normal Lips, Normal Gums, Normal Oropharynx, Normal Voice, No Airway Compromise. No: Normal Teeth Head: Other ( poor state of repair) Neck: Normal Inspection, Supple, Non-Tender, Full Range of Motion. No: Lymphadenopathy (L), Lymphadenopathy (R) Respiratory/Chest: No Respiratory Distress, Lungs Clear, Normal Breath Sounds Cardiovascular: Regular Rate, Rhythm, No Edema, No Murmur GI/Abdominal: Normal Bowel Sounds, Soft, Non-Tender, Other (Obese) Back Exam: Normal Inspection. No: CVA Tenderness (L), CVA Tenderness (R) Extremities: Normal Inspection, Normal Range of Motion, Non-Tender Neurological: Alert, Oriented, Normal Cognition Course - Vital Signs Last Recorded V/S: Last Vital Signs Temp 36.6 C 04/02/20 01:50 Pulse 87 04/02/20 01:50 Resp 18 04/02/20 01:50 BP 159/100 H 04/02/20 01:50 Pulse Ox 95 04/02/20 01:50 - Orders/Labs/Meds Orders: Active Orders 24 hr Category Date Time Status Chest 1V Frontal [CR] Stat Exams 04/02/20 02:33 Taken C Reactive Protein [C-REACTIVE PROTEIN] [CHEM] Stat Lab 04/02/20 02:47 Results COMPREHENSIVE METABOLIC PN,CMP [CHEM] Stat Lab 04/02/20 02:47 Results CORONAVIRUS COVID-19 PCR PHL Stat Lab 04/02/20 02:50 Received Labs: Laboratory Tests 04/02/20 04/02/20 04/02/20 Range/Units 02:47 02:47 02:47 WBC 8.41 (4.23-9.07) K/mm3 RBC 5.67 (4.63-6.08) M/mm3 Hgb 16.7 (13.7-17.5) gm/dl Hct 47.8 (40.1-51.0) % MCV 84.3 (79.0-92.2) fl MCH 29.5 (25.7-32.2) pg MCHC 34.9 (32.2-35.5) g/dl RDW Std Deviation 39.1 (35.1-43.9) fL Plt Count 174 D (163-337) K/mm3 MPV 9.8 (9.4-12.3) fl Neutrophils % (Manual) 61 H (40-60) % Band Neutrophils % 0 (0-10) % Lymphocytes % (Manual) 28 (20-40) % Atypical Lymphs % 0 % Monocytes % (Manual) 6 (2-10) % Eosinophils % (Manual) 5 (0.8-7.0) % Basophils % (Manual) 0 L (0.2-1.2) Platelet Estimate Adequate RBC Morph Comment Normal Sodium 134 L (136-145) mEq/L Potassium 3.7 (3.5-5.1) mEq/L Chloride 98 (98-107) mEq/L Carbon Dioxide 23 (21-32) mEq/L Anion Gap 16.7 H (5-15) BUN 11 (7-18) mg/dL Creatinine 1.1 (0.7-1.3) mg/dL Est Cr Clr Drug Dosing 84.64 mL/min Estimated GFR (MDRD) > 60 (>60) mL/min BUN/Creatinine Ratio 10.0 L (14-18) Glucose 388 H (74-106) mg/dL Calcium 8.5 (8.5-10.1) mg/dL Ferritin 409 H (26-388) ng/ml Total Bilirubin 0.4 (0.2-1.0) mg/dL ALT 132 H (16-63) U/L Alkaline Phosphatase 83 (46-116) U/L C-Reactive Protein 1.2 H* (<1.0) mg/dL Total Protein 7.3 (6.4-8.2) g/dl Albumin 3.2 L (3.4-5.0) g/dl Globulin 4.1 gm/dL Albumin/Globulin Ratio 0.8 L (1-2) - Re-Assessments/Exams Free Text/Narrative Re-Assessment/Exam: 04/02/20 04:21 The patient is doing okay. Chest x-ray looks fairly normal no acute c ardiopulmonary changes. Lab work is starting to suggest a COVID-like illness. COVID testing is pending. Ferritin and LDH are elevated as is a C-reactive protein. Unfortunately for the patient he is at the early stage of this illness and I advised him this will probably get worse. Of instructed him on 2 weeks of isolation including from his if possible. Departure - Departure Time of Disposition: 04:23 Disposition: Home, Self-Care 01 Clinical Impression: COVID-19 determined by clinical diagnostic criteria - Discharge Information Instructions: Prevent the Spread of COVID-19 if You Are Sick - CDC Referrals: PCP,None [Primary Care Provider] - Forms: ED Department Discharge Additional Instructions: Return to the emergency room with any questions problems or worsening symptoms. Follow-up with your regular healthcare provider after 2 weeks and you are back to normal. Your blood sugars are very high watch your diet to the best that you can Sepsis Event Note (ED) - Evaluation Sepsis Screening Result: No Definite Risk - Focused Exam Vital Signs: Vital Signs Temp Pulse Resp BP Pulse Ox 04/02/20 01:50 36.6 C 87 18 159/100 H 95 - My Orders Last 24 Hours: My Active Orders 04/02/20 02:33 Chest 1V Frontal [CR] Stat 04/02/20 02:47 C Reactive Protein [C-REACTIVE PROTEIN] [CHEM] Stat COMPREHENSIVE METABOLIC PN,CMP [CHEM] Stat 04/02/20 02:50 CORONAVIRUS COVID-19 PCR PHL Stat - Assessment/Plan Last 24 Hours: My Active Orders 04/02/20 02:33 Chest 1V Frontal [CR] Stat 04/02/20 02:47 C Reactive Protein [C-REACTIVE PROTEIN] [CHEM] Stat COMPREHENSIVE METABOLIC PN,CMP [CHEM] Stat 04/02/20 02:50 CORONAVIRUS COVID-19 PCR PHL Stat
--- NOTE | 2020-04-02 06:18 | CR ---
Chest: Portable view of the chest was obtained. Comparison: No prior chest imaging is available. Heart size and mediastinum are within normal limits for portable technique. Minimal atelectasis is noted within the left base. Lungs otherwise are clear with no acute parenchymal change being appreciated. Bony structures are grossly intact. Impression: 1. Minimal left basilar atelectasis. 2. Nothing acute is appreciated. Diagnostic code #2 This report was dictated in MDT
== END 2020-04-02 04:40 | disposition home or self-care (01) ==
LOC: JD.ED 01:41
DX: U07.1 COVID-19 (principal); E11.9 Type 2 diabetes mellitus without complications; I10 Essential (primary) hypertension; E66.9 Obesity, unspecified; F17.210 Nicotine dependence, cigarettes, uncomplicated; Z68.41 Body mass index [BMI] 40.0-44.9, adult; Z79.84 Long term (current) use of oral hypoglycemic drugs
CPT/HCPCS: 36415; 71045; 71045-26; 80053; 82728; 85007; 85027; 86140; 99285-25; U0002

== ENCOUNTER 2021-03-20 07:51 | Emergency (ER) | payer OTHER ==
[2021-03-20] MEDS ORDERED: HYDROmorphone 1 MG/ML Syringe IVPUSH ONE (08:11)
[2021-03-20] MEDS ORDERED: Metoclopramide 10 MG/2 ML SDV IVPUSH ONE (08:12)
[2021-03-20] MEDS ORDERED: diphenhydrAMINE 50 MG/ML SDV IVPUSH ONE (08:12)
--- NOTE | 2021-03-20 08:12 | EDM.PDOC ---
ED HPI GENERAL MEDICAL PROBLEM - General Chief Complaint: Headache Stated Complaint: HEADACHE Time Seen by Provider: 03/20/21 08:05 Source of Information: Reports: Patient, Family (spouse) History Limitations: Reports: No Limitations - History of Present Illness INITIAL COMMENTS - FREE TEXT/NARRATIVE: 45-year-old male presents to the ED with a persistent right hemicranial headache starting just above his right eye over the supraorbital ridge and radiating in the occipital frontal nerve distribution to occipital scalp. Patient had a headache last evening but was not very bad. He woke from sleep around 0200 hrs. this morning with marked increase in the severity of the headache right side of his head. Associated mild nausea without vomiting. His eyes are sensitive to light. He is prone to migraine headaches but he states this 1 is one of the worst headaches he has had for a while. He can walk talk and has no neurological deficits. Denies any nasal congestion or COVID-19 symptoms. Onset: Today, Sudden Onset Date: 03/20/21 Onset Time: 02:00 Duration: Hour(s):, Constant Location: Reports: Head (Right hemicranial headache starting above his right eye and radiating towards the right occiput) Quality: Reports: Ache, Throbbing Severity: Severe (8-9 out of 10) Improves with: Reports: Rest (In a dark room.) Worsens with: Reports: Other, Movement Context: Reports: Other (Headache became intense while he was sleeping this morning). Denies: Activity, Exercise (Bright lights), Lifting, Sick Contact, Trauma Associated Symptoms: Reports: Nausea/Vomiting (Mild nausea without vomiting) Treatments RADIATOR SPECIALIST: Reports: Acetaminophen (Took 1 g of acetaminophen shortly after 0200 hrs. with no improvement) Right Headache Pain Score (Numeric/FACES): 7 - Related Data Allergies Allergy/AdvReac Type Severity Reaction Status Date / Time No Known Allergies Allergy Verified 03/20/21 08:02 Home Meds: Home Meds metFORMIN [Glucophage XR] 1,000 mg PO BID 04/09/19 [History] Past Medical History - Past Health History Medical/Surgical History: Denies Medical/Surgical History HEENT History: Reports: None Cardiovascular History: Reports: High Cholesterol, Hypertension Respiratory History: Reports: Sleep Apnea Other Respiratory History: Patient is waiting for approval for CPAP. Gastrointestinal History: Reports: None Other Gastrointestinal History: Fatty liver, abnormal liver function Genitourinary History: Reports: None Musculoskeletal History: Reports: Arthritis Other Musculoskeletal History: Patellar instability Neurological History: Reports: None Psychiatric History: Reports: None Endocrine/Metabolic History: Reports: Diabetes, Type II (Is taking Metformin daily.), Obesity/BMI 30+, Vitamin D Deficiency Hematologic History: Reports: None Immunologic History: Reports: None Oncologic (Cancer) History: Reports: None Dermatologic History: Reports: None - Infectious Disease History Infectious Disease History: Reports: Chicken Pox - Past Surgical History Head Surgeries/Procedures: Reports: None HEENT Surgical History: Reports: Oral Surgery, Other (See Below) Other HEENT Surgeries/Procedures: tubes in ears, Dental extractions Male Surgical History: Reports: None Neurological Surgical History: Reports: None Musculoskeletal Surgical History: Reports: Arthroscopic Knee, Other (See Below) Other Musculoskeletal Surgeries/Procedures:: Right knee arthroscopy Oncologic Surgical History: Reports: None Social & Family History - Family History Family Medical History: No Pertinent Family History - Tobacco Use Tobacco Use Status *Q: Current Every Day Tobacco User Years of Tobacco use: 20 Packs/Tins Daily: 1 - Caffeine Use Caffeine Use: Reports: Energy Drinks Other Caffeine Use: drinks regular pop-pepsi - Recreational Drug Use Recreational Drug Use: No - Living Situation & Occupation Living situation: Reports: Occupation: Employed ED ROS GENERAL - Review of Systems Review Of Systems: See Below Constitutional: Reports: Fatigue (From not getting adequate sleep.). Denies: Fever, Chills, Malaise, Weakness HEENT: Reports: No Symptoms Respiratory: Reports: No Symptoms Cardiovascular: Reports: No Symptoms Endocrine: Reports: No Symptoms GI/Abdominal: Reports: No Symptoms : Reports: No Symptoms Skin: Reports: No Symptoms Neurological: Reports: Headache Psychiatric: Reports: No Symptoms Hematologic/Lymphatic: Reports: No Symptoms Immunologic: Reports: No Symptoms - Physical Exam Exam: See Below Exam Limited By: No Limitations General Appearance: Alert, WD/WN, No Apparent Distress, Other (Temperature is 36.2. Heart rate 91 is sinus respiratory is 18 with O2 sats of 96% room air BP is elevated 149 110 will have to be double checked.) Eye Exam: Bilateral Eye: Normal Inspection, PERRL Throat/Mouth: Normal Inspection, Normal Lips, Normal Teeth, Normal Oropharynx Head Exam: Atraumatic, Normocephalic Neck: Normal Inspection, Supple, Non-Tender, Full Range of Motion. No: Lymphadenopathy (L), Lymphadenopathy (R) Respiratory/Chest: No Respiratory Distress, Lungs Clear, Normal Breath Sounds, No Accessory Muscle Use Cardiovascular: Normal Peripheral Pulses, Regular Rate, Rhythm, No Edema, No Murmur, No Rub Neuro Exam (Abbreviated): Alert, Oriented, CN II-XII Intact, Normal Cognition, No Motor/Sensory Deficits, Other (Normal rapid alternating movements no pronator drift normal [id number] assessment) Extremities: Normal Inspection, Normal Range of Motion, Non-Tender, No Pedal Edema Psychiatric: Normal Affect, Normal Mood Skin Exam: Warm, Dry, Intact, Normal Color, No Rash Course - Vital Signs Last Recorded V/S: Last Vital Signs Temp 36.2 C 03/20/21 07:59 Pulse 91 03/20/21 07:59 Resp 18 03/20/21 07:59 BP 149/110 H 03/20/21 07:59 Pulse Ox 96 03/20/21 07:59 - Orders/Labs/Meds Orders: Active Orders 24 hr Category Date Time Status Dextrose 5%-0.9% NaCl [Dextrose 5%-Normal Saline] 1,000 Med 03/20/21 08:15 Active ml IV ASDIRECTED Ketorolac [Toradol] Med 03/20/21 08:15 Active 30 mg IVPUSH ONETIME Medication Orders Dextrose/Sodium Chloride (Dextrose 5%-Normal Saline) 1,000 mls @ 999 mls/hr IV ASDIRECTED VICTORIA Last Admin: 03/20/21 08:38 Dose: 999 mls/hr Documented by: [id number] Ketorolac Tromethamine (Ketorolac 30 Mg/Ml Sdv) 30 mg IVPUSH ONETIME VICTORIA Last Admin: 03/20/21 08:38 Dose: 30 mg Documented by: [id number] Meds: Medications Generic Name Dose Route Start Last Admin Trade Name Freq PRN Reason Stop Dose Admin Dextrose/Sodium Chloride 1,000 mls @ 999 mls/hr 03/20/21 08:15 03/20/21 08:38 Dextrose 5%-Normal Saline IV 999 mls/hr ASDIRECTED VICTORIA Administration Ketorolac Tromethamine 30 mg 03/20/21 08:15 03/20/21 08:38 Ketorolac 30 Mg/Ml Sdv IVPUSH 30 mg ONETIME VICTORIA Administration Discontinued Medications Generic Name Dose Route Start Last Admin Trade Name Romana ELMOREN Reason Stop Dose Admin Diphenhydramine HCl 25 mg 03/20/21 08:12 03/20/21 08:39 Diphenhydramine 50 Mg/Ml Sdv IVPUSH 03/20/21 08:13 25 mg ONETIME ONE Administration Hydromorphone HCl 1 mg 03/20/21 08:11 03/20/21 08:38 Hydromorphone 1 Mg/Ml Syringe IVPUSH 03/20/21 08:12 0.5 mg ONETIME ONE Administration Metoclopramide HCl 10 mg 03/20/21 08:12 03/20/21 08:38 Metoclopramide 10 Mg/2 Ml Sdv IVPUSH 03/20/21 08:13 10 mg ONETIME ONE Administration - Radiology Interpretation Free Text/Narrative:: 45-year-old male presents to the ED awakening from sleep early this morning around 0200 hrs. with a very persistent right hemicranial headache starting in the distribution of the occipital frontal nerve right side. He did take 2 Tylenol during the night without much relief. He is prone to migraine headaches. This is one of the worst ones he is experienced for period of time. Neuro exam is otherwise normal. Plan IV D5 normal saline at open. Will be given Dilaudid 1 mg with Reglan 10 mg and Toradol 30 mg IV with Benadryl 25 mg IV for headache relief. - Re-Assessments/Exams Free Text/Narrative Re-Assessment/Exam: 03/20/21 09:17 Patient reports his headache is markedly improved. It has been a little over half hour since medication was infused. He will be discharged home. His is here to drive him home. He is alert and oriented and does not seem to be very sedated from medication at all. Departure - Departure Time of Disposition: 09:18 Disposition: Home, Self-Care 01 Condition: Fair Clinical Impression: Migraine headache without aura Qualifiers: Status migrainosus presence: without status migrainosus Intractability: not intractable Qualified Code(s): G43.009 - Migraine without aura, not intractable, without status migrainosus - Discharge Information *PRESCRIPTION DRUG MONITORING PROGRAM REVIEWED*: Not Applicable *COPY OF PRESCRIPTION DRUG MONITORING REPORT IN PATIENT MAXIMINO: Not Applicable Instructions: Migraine Headache, [id number] Referrals: Susan Hdz PA-C [Primary Care Provider] - Forms: ED Department Discharge, ED Return to Work/School Form Additional Instructions: Evaluation in the emergency room this morning in regards to a persistent right- sided hemicranial headache starting above your right eye and radiating towards the right occipital scalp. Neurological exam is otherwise normal. You were treated with D5 normal saline intravenous fluids and medications Dilaudid 1 mg mixed with Toradol 30 mg and Reglan 10 mg IV for pain relief. He also were given Benadryl 25 mg IV for nausea and head pain relief as well. Suggest home to sleep rest for the next 4 to 6 hours to break the headache cycle. Note provided for you to be off work today. Resume regular diet and fluids when a ble. Sepsis Event Note (ED) - Evaluation Sepsis Screening Result: No Definite Risk - Focused Exam Vital Signs: Vital Signs Temp Pulse Resp BP Pulse Ox 03/20/21 07:59 36.2 C 91 18 149/110 H 96 - My Orders Last 24 Hours: My Active Orders 03/20/21 08:15 Dextrose 5%-0.9% NaCl [Dextrose 5%-Normal Saline] 1,000 ml IV ASDIRECTED Ketorolac [Toradol] 30 mg IVPUSH ONETIME - Assessment/Plan Last 24 Hours: My Active Orders 03/20/21 08:15 Dextrose 5%-0.9% NaCl [Dextrose 5%-Normal Saline] 1,000 ml IV ASDIRECTED Ketorolac [Toradol] 30 mg IVPUSH ONETIME
[2021-03-20] MEDS ORDERED: Dextrose 5%-0.9% NaCl 1,000 ML IV SCH (08:15)
[2021-03-20] MEDS ORDERED: Ketorolac 30 MG/ML SDV IVPUSH SCH (08:15)
[2021-03-20 09:43] VITALS: BP 126/86; PULSE 68
== END 2021-03-20 09:35 | disposition home or self-care (01) ==
LOC: JD.ED 07:51
DX: G43.009 Migraine without aura, not intractable, without status migrainosus (principal); I10 Essential (primary) hypertension; E11.9 Type 2 diabetes mellitus without complications; E66.9 Obesity, unspecified; Z68.42 Body mass index [BMI] 45.0-49.9, adult; Z72.0 Tobacco use; Z79.84 Long term (current) use of oral hypoglycemic drugs
CPT/HCPCS: 96374; 96375; 99283; J1170; J1200; J1885; J2765; J7042

== ENCOUNTER 2021-04-09 09:13 | Emergency (ER) | payer OTHER ==
[2021-04-09 09:38] VITALS: BP 140/102; PULSE 76
[2021-04-09] MEDS ORDERED: Ketorolac 15 MG/ML SDV IVPUSH ONE (09:47)
[2021-04-09] MEDS ORDERED: diphenhydrAMINE 50 MG/ML SDV IVPUSH ONE (09:47)
[2021-04-09] MEDS ORDERED: Metoclopramide 10 MG/2 ML SDV IVPUSH ONE (09:47)
--- NOTE | 2021-04-09 09:50 | EDM.PDOC ---
ED HPI GENERAL MEDICAL PROBLEM - General Chief Complaint: Headache Stated Complaint: HEADACHE Time Seen by Provider: 04/09/21 09:48 Source of Information: Reports: Patient History Limitations: Reports: No Limitations - History of Present Illness INITIAL COMMENTS - FREE TEXT/NARRATIVE: Patient is a 45-year-old male with a past medical history of migraine headaches presenting with a chief complaint of headache. Duration of symptoms is 3 days. No exacerbating or palliative factors. Patient has prior history of migraines. States this feels similar. Denies sudden onset. Reports associated photophobia without phonophobia. Headache is located on the right side without radiation. No neck pain. No head trauma. Takes [id number] medication medication at home without relief. Over the past few months, patient reports headache becoming slightly more frequent and having several headaches per month. In the emergency room in March received analgesia which significantly improved headache. Patient is currently being treated for otitis externa of the left ear. Frontal Headache Pain Score (Numeric/FACES): 6 - Related Data Allergies Allergy/AdvReac Type Severity Reaction Status Date / Time No Known Allergies Allergy Verified 04/09/21 09:38 Home Meds: Home Meds metFORMIN [Glucophage XR] 1,000 mg PO BID 04/09/19 [History] Past Medical History - Past Health History Medical/Surgical History: Denies Medical/Surgical History HEENT History: Reports: None Cardiovascular History: Reports: High Cholesterol, Hypertension Respiratory History: Reports: Sleep Apnea Other Respiratory History: CPAP. Gastrointestinal History: Reports: None Other Gastrointestinal History: Fatty liver, abnormal liver function Genitourinary History: Reports: None Musculoskeletal History: Reports: Arthritis Other Musculoskeletal History: Patellar instability Neurological History: Reports: Migraines Psychiatric History: Reports: None Endocrine/Metabolic History: Reports: Diabetes, Type II, Obesity/BMI 30+, Vitamin D Deficiency Hematologic History: Reports: None Immunologic History: Reports: None Oncologic (Cancer) History: Reports: None Dermatologic History: Reports: None - Infectious Disease History Infectious Disease History: Reports: Chicken Pox - Past Surgical History Head Surgeries/Procedures: Reports: None HEENT Surgical History: Reports: Oral Surgery, Other (See Below) Other HEENT Surgeries/Procedures: tubes in ears, Dental extractions Cardiovascular Surgical History: Reports: None Respiratory Surgical History: Reports: None GI Surgical History: Reports: None Male Surgical History: Reports: None Neurological Surgical History: Reports: None Musculoskeletal Surgical History: Reports: Arthroscopic Knee, Other (See Below) Other Musculoskeletal Surgeries/Procedures:: Right knee arthroscopy Oncologic Surgical History: Reports: None Dermatological Surgical History: Reports: None Social & Family History - Family History Family Medical History: No Pertinent Family History - Tobacco Use Tobacco Use Status *Q: Current Every Day Tobacco User Years of Tobacco use: 20 Packs/Tins Daily: 0.5 - Caffeine Use Caffeine Use: Reports: Energy Drinks Other Caffeine Use: drinks regular pop-pepsi - Recreational Drug Use Recreational Drug Use: No - Living Situation & Occupation Living situation: Reports: Occupation: Employed ED ROS GENERAL - Review of Systems Review Of Systems: See Below Free Text/Narrative/Comment: In addition to that documented in the HPI above, the additional ROS was obtained: Constitutional: Denies fevers or chills Eyes: Denies vision changes ENMT: Denies sore throat CV: Denies chest pain Resp: Denies SOB GI: Denies vomiting or diarrhea : Denies painful urination MSK: Denies recent trauma Skin: Denies new rashes Neuro: Denies new numbness or tingling or weakness Endocrine: Denies unexpected weight loss Heme: Denies bleeding disorders - Physical Exam Exam: See Below Text/Narrative:: I have reviewed the triage vital signs Const: Well nourished, well developed, appears stated age Eyes: Pupils Equal and reactive to light bilaterally, no conjunctival injection HENT: No signs of trauma or swelling, Neck supple without meningismus CV: Regular Rate Rhythm, Warm, well-perfused extremities RESP: Unlabored respiratory effort GI: soft, non-tender, non-distended, no masses MSK: No gross deformities appreciated Skin: Warm, dry. No rashes Neuro: Alert, behavioral interventionist II-XII grossly intact. Sensation and motor function of extremities grossly intact. Psych: Appropriate mood and affect. Course - Vital Signs Last Recorded V/S: Last Vital Signs Temp 36.1 C 04/09/21 09:30 Pulse 76 04/09/21 09:30 Resp 20 04/09/21 09:30 BP 140/102 H 04/09/21 09:30 Pulse Ox 96 04/09/21 09:30 - Orders/Labs/Meds Meds: Medications Discontinued Medications Generic Name Dose Route Start Last Admin Trade Name Freq PRN Reason Stop Dose Admin Diphenhydramine HCl 25 mg 04/09/21 09:47 04/09/21 10:09 Diphenhydramine 50 Mg/Ml Sdv IVPUSH 04/09/21 09:48 25 mg ONETIME ONE Administration Ketorolac Tromethamine 15 mg 04/09/21 09:47 04/09/21 10:08 Ketorolac 15 Mg/Ml Sdv IVPUSH 04/09/21 09:48 15 mg ONETIME ONE Administration Metoclopramide HCl 10 mg 04/09/21 09:47 04/09/21 10:09 Metoclopramide 10 Mg/2 Ml Sdv IVPUSH 04/09/21 09:48 10 mg ONETIME ONE Administration Departure - Departure Time of Disposition: 10:44 Disposition: Home, Self-Care 01 Clinical Impression: Migraine - Discharge Information *PRESCRIPTION DRUG MONITORING PROGRAM REVIEWED*: Not Applicable *COPY OF PRESCRIPTION DRUG MONITORING REPORT IN PATIENT MAXIMINO: Not Applicable Instructions: Chronic Migraine Headache Referrals: Susan Hdz PA-C [Primary Care Provider] - Forms: ED Department Discharge Additional Instructions: Please follow-up with your primary care physician and neurologist in the next several days for management of this headache. Return to the emergency room immediately should headache worsen, he develop any new or concerning symptoms of any other emergent concerns. Sepsis Event Note (ED) - Focused Exam Vital Signs: Vital Signs Temp Pulse Resp BP Pulse Ox 04/09/21 09:30 36.1 C 76 20 140/102 H 96 - Assessment/Plan Assessment:: Patient is a 45-year-old male presenting to the emergency room with a chief complaint of headache. Patient had unremarkable ER course. Normal neurologic exam. Differential diagnosis considered for this patient include subarachnoid hemorrhage, meningitis/encephalitis, migraine headache, temporal arteritis. Patient patient's evaluation, diagnosis consistent with migraine headache. Headache significantly improved after administration of analgesia in the emergency room. Patient feels safe and comfortable going home. Return precautions discussed as usual. All questions were addressed and answered. Patient agrees with plan of care.
== END 2021-04-09 11:05 | disposition home or self-care (01) ==
LOC: JD.ED 09:13
DX: G43.909 Migraine, unspecified, not intractable, without status migrainosus (principal); I10 Essential (primary) hypertension; E11.9 Type 2 diabetes mellitus without complications; E66.9 Obesity, unspecified; Z68.41 Body mass index [BMI] 40.0-44.9, adult; Z72.0 Tobacco use; Z79.84 Long term (current) use of oral hypoglycemic drugs
CPT/HCPCS: 96374; 96375; 99283; J1200; J1885; J2765

== ENCOUNTER 2021-04-19 09:20 | Emergency (ER) | payer OTHER ==
[2021-04-19 09:32] VITALS: BP 145/98; PULSE 85
--- NOTE | 2021-04-19 09:47 | EDM.PDOC ---
ED HPI GENERAL MEDICAL PROBLEM - General Chief Complaint: Skin Complaint Stated Complaint: R THIGH SKIN COMPLAINT Time Seen by Provider: 04/19/21 09:41 - History of Present Illness INITIAL COMMENTS - FREE TEXT/NARRATIVE: 45-year-old male presents the emergency room with a right groin abscess. This is been present for 4 to 5 days. 3 days ago he was started on Bactrim DS. It is continuing to grow and come to the surface. Patient has not had any fevers or chills no nausea no vomiting no symptoms make him think he is got a systemic illness. Patient has no other complaints at this time Right Groin Pain Score (Numeric/FACES): 7 - Related Data Allergies Allergy/AdvReac Type Severity Reaction Status Date / Time No Known Allergies Allergy Verified 04/19/21 09:32 Home Meds: Home Meds metFORMIN [Glucophage XR] 1,000 mg PO BID 04/09/19 [History] Past Medical History - Past Health History Medical/Surgical History: Denies Medical/Surgical History HEENT History: Reports: None Cardiovascular History: Reports: High Cholesterol, Hypertension Respiratory History: Reports: Sleep Apnea Other Respiratory History: Patient is waiting for approval for CPAP. Gastrointestinal History: Reports: None Other Gastrointestinal History: Fatty liver, abnormal liver function Genitourinary History: Reports: None Musculoskeletal History: Reports: Arthritis Other Musculoskeletal History: Patellar instability Neurological History: Reports: None Psychiatric History: Reports: None Endocrine/Metabolic History: Reports: Diabetes, Type II, Obesity/BMI 30+, Vitamin D Deficiency Hematologic History: Reports: None Immunologic History: Reports: None Oncologic (Cancer) History: Reports: None Dermatologic History: Reports: None - Infectious Disease History Infectious Disease History: Reports: Chicken Pox - Past Surgical History Head Surgeries/Procedures: Reports: None HEENT Surgical History: Reports: Oral Surgery, Other (See Below) Other HEENT Surgeries/Procedures: tubes in ears, Dental extractions Cardiovascular Surgical History: Reports: None Respiratory Surgical History: Reports: None GI Surgical History: Reports: None Male Surgical History: Reports: None Neurological Surgical History: Reports: None Musculoskeletal Surgical History: Reports: Arthroscopic Knee, Other (See Below) Other Musculoskeletal Surgeries/Procedures:: Right knee arthroscopy Oncologic Surgical History: Reports: None Dermatological Surgical History: Reports: None Social & Family History - Family History Family Medical History: No Pertinent Family History - Caffeine Use Caffeine Use: Reports: Energy Drinks Other Caffeine Use: drinks regular pop-pepsi - Living Situation & Occupation Living situation: Reports: Occupation: Employed ED ROS GENERAL - Review of Systems Review Of Systems: See Below Constitutional: Reports: No Symptoms HEENT: Reports: No Symptoms Respiratory: Reports: No Symptoms Cardiovascular: Reports: No Symptoms GI/Abdominal: Reports: No Symptoms ED EXAM, SKIN/RASH Exam: See Below Exam Limited By: No Limitations General Appearance: Alert, No Apparent Distress Head: Atraumatic, Normocephalic Neck: Normal Inspection, Supple, Non-Tender, Full Range of Motion Respiratory/Chest: No Respiratory Distress, Lungs Clear, Normal Breath Sounds Cardiovascular: Regular Rate, Rhythm, No Edema, No Murmur Skin: Other (Right inner thigh right at the groin the patient has a 2 x 3 cm bulging fluctuant abscess. No obvious drainage but it appears to be somewhat superficial) ED SKIN PROCEDURES - I&D Site: Right proximal inner thigh Skin Prep: Providone-Iodine (Betadine) Local Anesthesia: Lidocaine: 1% Plain Local Anesthetic Volume: 4cc Area Incised With: 11 Blade Drainage: Purulent, Bloody, Moderate Amount Probed to Break Up Loculations: Yes Packed With: Other (Half-inch gauze) Sterile Dressinx4(s) Complications: No Progress/Comments: Patient doing much better after the incision and drainage culture obtained Course - Vital Signs Last Recorded V/S: Last Vital Signs Temp 36.9 C 04/19/21 09:29 Pulse 85 04/19/21 09:29 Resp 18 04/19/21 09:29 BP 145/98 H 04/19/21 09:29 Pulse Ox 100 04/19/21 09:29 - Orders/Labs/Meds Meds: Medications Discontinued Medications Generic Name Dose Route Start Last Admin Trade Name Freq PRN Reason Stop Dose Admin Lidocaine HCl Confirm 04/19/21 10:09 Lidocaine 1% 50 Ml Mdv Administered 04/19/21 10:10 Dose 50 ml .ROUTE .STK-MED ONE Lidocaine HCl 10 ml 04/19/21 10:23 04/19/21 10:30 Lidocaine 1% 10 Ml Mdv INJECT 04/19/21 10:24 10 ml ONETIME ONE Administration Departure - Departure Time of Disposition: 11:00 Disposition: Home, Self-Care 01 Clinical Impression: Abscess of right groin - Discharge Information Referrals: Bartolo Dukes MD [Primary Care Provider] - Forms: ED Department Discharge Additional Instructions: Return to the emergency room with any questions problems or worsening symptoms. Continue taking your antibiotic. Warm sitz bath 3-4 times a day after these do dressing changes. Today keep the dressing intact until tomorrow morning take a sitz bath and then start your dressing changes then. Follow-up with Dr. Lainez, our surgeon on Wednesday or Wednesday of this week. You can schedule an appointment with him at [phone] Sepsis Event Note (ED) - Evaluation Sepsis Screening Result: No Definite Risk - Focused Exam Vital Signs: Vital Signs Temp Pulse Resp BP Pulse Ox 04/19/21 09:29 36.9 C 85 18 145/98 H 100
[2021-04-19] MEDS ORDERED: Lidocaine 1% 50 ML MDV ONE (10:09)
[2021-04-19] MEDS ORDERED: Lidocaine 1% 10 ML MDV INJECT ONE (10:23)
== END 2021-04-19 11:17 | disposition home or self-care (01) ==
LOC: JD.ED 09:20
DX: L02.214 Cutaneous abscess of groin (principal); L02.415 Cutaneous abscess of right lower limb; I10 Essential (primary) hypertension; E11.9 Type 2 diabetes mellitus without complications; E66.9 Obesity, unspecified; Z68.42 Body mass index [BMI] 45.0-49.9, adult
CPT/HCPCS: 10060; 87070; 87205; 99283-25

== ENCOUNTER 2021-05-05 09:14 | Emergency (ER) | payer OTHER ==
[2021-05-05 09:29] VITALS: BP 134/84; PULSE 67
[2021-05-05] MEDS ORDERED: FLU Vacc QS2021-22 36MOS UP/PF 60 MCG/0.5 ML Syringe IM ONE (09:45)
[2021-05-05] MEDS ORDERED: Metoclopramide 10 MG/2 ML SDV IVPUSH ONE (09:53)
[2021-05-05] MEDS ORDERED: Sodium Chloride 0.9% 10 ML Syringe FLUSH PRN (09:53)
[2021-05-05] MEDS ORDERED: diphenhydrAMINE 50 MG/ML SDV IVPUSH ONE (09:53)
[2021-05-05] MEDS ORDERED: Ketorolac 30 MG/ML SDV IVPUSH SCH (10:00)
--- NOTE | 2021-05-05 10:50 | EDM.PDOC ---
ED HPI GENERAL MEDICAL PROBLEM - General Chief Complaint: Headache Stated Complaint: MIGRAINE Time Seen by Provider: 05/05/21 09:43 Source of Information: Reports: Patient, RN Notes Reviewed - History of Present Illness INITIAL COMMENTS - FREE TEXT/NARRATIVE: 45 yr old male with onset of [place] yesterday, throbbing, L sided similar to prior migraines. mild nausea, no vomiting. Hx migraines. This is similar. Headache Pain Score (Numeric/FACES): 6 - Related Data Allergies Allergy/AdvReac Type Severity Reaction Status Date / Time No Known Allergies Allergy Verified 05/05/21 09:23 Home Meds: Home Meds metFORMIN [Glucophage XR] 1,000 mg PO BID 04/09/19 [History] Past Medical History - Past Health History Medical/Surgical History: Denies Medical/Surgical History HEENT History: Reports: None Cardiovascular History: Reports: High Cholesterol, Hypertension Respiratory History: Reports: Sleep Apnea Other Respiratory History: Patient is waiting for approval for CPAP. Gastrointestinal History: Reports: None Other Gastrointestinal History: Fatty liver, abnormal liver function Genitourinary History: Reports: None Musculoskeletal History: Reports: Arthritis Other Musculoskeletal History: Patellar instability Neurological History: Reports: None Psychiatric History: Reports: None Endocrine/Metabolic History: Reports: Diabetes, Type II, Obesity/BMI 30+, Vitamin D Deficiency Hematologic History: Reports: None Immunologic History: Reports: None Oncologic (Cancer) History: Reports: None Dermatologic History: Reports: None - Infectious Disease History Infectious Disease History: Reports: Chicken Pox - Past Surgical History Head Surgeries/Procedures: Reports: None HEENT Surgical History: Reports: Oral Surgery, Other (See Below) Other HEENT Surgeries/Procedures: tubes in ears, Dental extractions Cardiovascular Surgical History: Reports: None Respiratory Surgical History: Reports: None GI Surgical History: Reports: None Male Surgical History: Reports: None Neurological Surgical History: Reports: None Musculoskeletal Surgical History: Reports: Arthroscopic Knee, Other (See Below) Other Musculoskeletal Surgeries/Procedures:: Right knee arthroscopy Oncologic Surgical History: Reports: None Dermatological Surgical History: Reports: None Social & Family History - Family History Family Medical History: No Pertinent Family History - Tobacco Use Tobacco Use Status *Q: Current Every Day Tobacco User Years of Tobacco use: 23 Packs/Tins Daily: 0.7 - Caffeine Use Caffeine Use: Reports: Energy Drinks, Soda Other Caffeine Use: drinks regular pop-pepsi - Recreational Drug Use Recreational Drug Use: No - Living Situation & Occupation Living situation: Reports: Occupation: Employed ED ROS GENERAL - Review of Systems Review Of Systems: See Below Constitutional: Denies: Fever, Chills, Diaphoresis HEENT: Denies: Sinus Problem Respiratory: Denies: Shortness of Breath, Cough Cardiovascular: Denies: Chest Pain GI/Abdominal: Reports: Nausea. Denies: Vomiting Musculoskeletal: Reports: No Symptoms Skin: Reports: No Symptoms Neurological: Reports: Headache - Physical Exam Exam: See Below General Appearance: Alert, Mild Distress Head Exam: Atraumatic Neck: Supple Respiratory/Chest: No Respiratory Distress, Lungs Clear, Normal Breath Sounds Cardiovascular: Regular Rate, Rhythm GI/Abdominal: Soft, Non-Tender Neuro Exam (Abbreviated): Alert, Oriented, Other (no drift, finger to nose normal) Extremities: Normal Inspection, Normal Range of Motion Skin Exam: Warm, Normal Color Course - Vital Signs Last Recorded V/S: Last Vital Signs Temp 96.6 F L 05/05/21 09:23 Pulse 67 05/05/21 09:23 Resp 18 05/05/21 09:23 BP 134/84 05/05/21 09:23 Pulse Ox 98 05/05/21 09:23 - Orders/Labs/Meds Orders: Active Orders 24 hr Category Date Time Status Peripheral IV Care [RC] . DIRECTED Care 05/05/21 09:53 Active Vaccine to be Administered/Admin Charge [RC] ASDIRECTED Care 05/05/21 09:36 Active Ketorolac [Toradol] Med 05/05/21 10:00 Active 30 mg IVPUSH ONETIME Sodium Chloride 0.9% [Saline Flush] Med 05/05/21 09:53 Active 10 ml FLUSH ASDIRECTED PRN Peripheral IV Insertion Adult [OM.PC] Stat Oth 05/05/21 09:52 Ordered Medication Orders Ketorolac Tromethamine (Ketorolac 30 Mg/Ml Sdv) 30 mg IVPUSH ONETIME [facility] Last Admin: 05/05/21 10:27 Dose: 30 mg Documented by: HORACIO Sodium Chloride (Sodium Chloride 0.9% 10 Ml Syringe) 10 ml FLUSH ASDIRECTED PRN PRN Reason: Keep Vein Open Last Admin: 05/05/21 10:48 Dose: 10 ml Documented by: HORACIO Meds: Medications Generic Name Dose Route Start Last Admin Trade Name Romana PRN Reason Stop Dose Admin Ketorolac Tromethamine 30 mg 05/05/21 10:00 05/05/21 10:27 Ketorolac 30 Mg/Ml Sdv IVPUSH 30 mg ONETIME [facility] Administration Sodium Chloride 10 ml 05/05/21 09:53 05/05/21 10:48 Sodium Chloride 0.9% 10 Ml Syringe FLUSH 10 ml ASDIRECTED PRN Administration Keep Vein Open Discontinued Medications Generic Name Dose Route Start Last Admin Trade Name Romana PRN Reason Stop Dose Admin Diphenhydramine HCl 25 mg 05/05/21 09:53 05/05/21 10:26 Diphenhydramine 50 Mg/Ml Sdv IVPUSH 05/05/21 09:54 25 mg ONETIME ONE Administration Influenza Virus Vaccine 60 mcg 05/05/21 09:45 05/05/21 10:27 Flu Vacc [id number] 36mos Up/Pf 60 Mcg/0.5 Ml Syringe IM 05/05/21 09:46 60 mcg .ONCE ONE Administration Metoclopramide HCl 10 mg 05/05/21 09:53 05/05/21 10:27 Metoclopramide 10 Mg/2 Ml Sdv IVPUSH 05/05/21 09:54 10 mg ONETIME ONE Administration - Re-Assessments/Exams Free Text/Narrative Re-Assessment/Exam: 05/05/21 11:05 [place] gone at time of discharge Departure - Departure Time of Disposition: 10:48 Disposition: Home, Self-Care 01 Condition: Fair Clinical Impression: Migraine - Discharge Information Instructions: Migraine Headache, [id number] Referrals: Susan Hdz PA-C [Primary Care Provider] - Forms: ED Department Discharge Additional Instructions: Rest, You may continue ibuprofen q 6 to 8 hr if needed for any further headache. Follow up clinic as needed. Sepsis Event Note (ED) - Evaluation Sepsis Screening Result: No Definite Risk - Focused Exam Vital Signs: Vital Signs Temp Pulse Resp BP Pulse Ox 05/05/21 09:23 96.6 F L 67 18 134/84 98 - My Orders Last 24 Hours: My Active Orders 05/05/21 09:36 Vaccine to be Administered/Admin Charge [RC] ASDIRECTED 05/05/21 09:52 Peripheral IV Insertion Adult [OM.PC] Stat 05/05/21 09:53 Peripheral IV Care [] . DIRECTED Sodium Chloride 0.9% [Saline Flush] 10 ml FLUSH ASDIRECTED PRN 05/05/21 10:00 Ketorolac [Toradol] 30 mg IVPUSH ONETIME - Assessment/Plan Last 24 Hours: My Active Orders 05/05/21 09:36 Vaccine to be Administered/Admin Charge [] ASDIRECTED 05/05/21 09:52 Peripheral IV Insertion Adult [OM.PC] Stat 05/05/21 09:53 Peripheral IV Care [RC] . DIRECTED Sodium Chloride 0.9% [Saline Flush] 10 ml FLUSH ASDIRECTED PRN 05/05/21 10:00 Ketorolac [Toradol] 30 mg IVPUSH ONETIME
== END 2021-05-05 11:05 | disposition home or self-care (01) ==
LOC: JD.ED 09:14
DX: G43.909 Migraine, unspecified, not intractable, without status migrainosus (principal); E78.00 Pure hypercholesterolemia, unspecified; I10 Essential (primary) hypertension; E11.9 Type 2 diabetes mellitus without complications; E66.9 Obesity, unspecified; Z68.41 Body mass index [BMI] 40.0-44.9, adult; Z72.0 Tobacco use; Z79.84 Long term (current) use of oral hypoglycemic drugs; Z23 Encounter for immunization
CPT/HCPCS: 90686; 96374; 96375; 99282; 99283-25; G0008; J1200; J1885; J2765

== ENCOUNTER 2022-07-02 14:08 | Emergency (ER) | payer OTHER ==
[2022-07-02 14:20] VITALS: BP 164/103; PULSE 87
[2022-07-02] MEDS ORDERED: Sodium Chloride 0.9% 10 ML Syringe FLUSH PRN (14:38)
[2022-07-02] MEDS ORDERED: Ondansetron 4 MG/2 ML SDV IVPUSH ONE (14:38)
[2022-07-02] MEDS ORDERED: Iopamidol 612 MG/ML 100 ML Bottle IVPUSH ONE (14:42)
[2022-07-02] MEDS ORDERED: Sodium Chloride 0.9% 1,000 ML IV SCH (14:45)
[2022-07-02] MEDS ORDERED: HYDROmorphone 1 MG/ML Syringe IVPUSH STA (14:46)
[2022-07-02] MEDS: Sodium Chloride 0.9% 10 ML Syringe FLUSH PRN ×2 (14:56→14:57)
[2022-07-02 14:59] LABS: ESTIMATED GFR 85 mL/min (>60)
== END 2022-07-02 16:45 | disposition home or self-care (01) ==
LOC: JD.ED 14:08
DX: R10.11 Right upper quadrant pain (principal); E78.00 Pure hypercholesterolemia, unspecified; I10 Essential (primary) hypertension; E11.9 Type 2 diabetes mellitus without complications; F17.210 Nicotine dependence, cigarettes, uncomplicated; E66.9 Obesity, unspecified; Z68.41 Body mass index [BMI] 40.0-44.9, adult; Z79.84 Long term (current) use of oral hypoglycemic drugs
CPT/HCPCS: 36415; 74177; 76705; 80053; 81001; 82977; 83690; 85025; 86140; 96361; 96374; 96375; 99284; J1170; J2405; J3490; J7030; Q9967

== ENCOUNTER 2023-01-28 12:48 | Emergency (ER) | payer OTHER ==
[2023-01-28] MEDS ORDERED: Cyclobenzaprine 10 MG Tab PO ONE (13:34)
[2023-01-28 13:50] LABS: BASOPHILS ABSOLUTE AUTO 0.05 K/mm3 (0.01-0.08); BASOPHILS PERCENT AUTO 0.6 % (0.1-1.2); EOSINOPHILS ABSOLUTE AUTO 0.32 K/mm3 (0.04-0.54); EOSINOPHILS PERCENT AUTO 3.6 (0.8-7.0); HEMOGLOBIN 17.4 gm/dl (13.7-17.5); IMMATURE GRAN ABSOLUTE AUTO 0.03 K/mm3 (0.00-0.10); IMMATURE GRAN PERCENT AUTO 0.3 % (<=1.0); LYMPHOCYTES ABSOLUTE AUTO 3.24 K/mm3 (1.32-3.57); LYMPHOCYTES PERCENT AUTO 36.4 % (21.8-53.1); MEAN CORPUSCULAR HEMOGLOBIN 30.7 pg (25.7-32.2); MEAN CORPUSCULAR HGB CONC 36.3 g/dl (32.2-35.5); MEAN CORPUSCULAR VOLUME 84.8 fl (79.0-92.2); MEAN PLATELET VOLUME 9.9 fl (9.4-12.3); MONOCYTES ABSOLUTE AUTO 0.53 K/mm3 (0.30-0.82); NEUTROPHILS ABSOLUTE AUTO 4.73 K/mm3 (1.78-5.38); NEUTROPHILS PERCENT AUTO 53.1 % (34.0-67.9); PLATELET COUNT,PLT 184 K/mm3 (163-337); RED BLOOD CELL COUNT 5.66 M/mm3 (4.63-6.08)
[2023-01-28 14:10] LABS: A/G RATIO 0.9 (1-2); ALANINE AMINOTRANSFERASE,ALT 94 U/L (16-63); ALBUMIN 3.8 g/dl (3.4-5.0); ALKALINE PHOSPHATASE 73 U/L (46-116); ANION GAP 15.3 (5-15); ASPARTATE AMNIOTRANSFERASE,AST 58 U/L (15-37); BILIRUBIN TOTAL 0.5 mg/dL (0.2-1.0); BLOOD UREA NITROGEN,BUN 15 mg/dL (7-18); BUN/CREATININE RATIO 12.5 (14-18); CALCIUM 9.1 mg/dL (8.5-10.1); CARBON DIOXIDE,CO2 24 mEq/L (21-32); CHLORIDE,CL 100 mEq/L (98-107); CREATININE 1.2 mg/dL (0.7-1.3); EST CRCL DRUG DOSING (CG) 75.21 mL/min; ESTIMATED GFR 76 mL/min (>60); PROTEIN TOTAL,TP 7.9 g/dl (6.4-8.2); SODIUM,NA 135 mEq/L (136-145)
[2023-01-28 14:12] LABS: C-REACTIVE PROTEIN < 0.2 mg/dL (<1.0); GLUCOSE RANDOM 404 mg/dL (70-99); POTASSIUM,K 4.3 mEq/L (3.5-5.1)
[2023-01-28] MEDS ORDERED: Ketorolac 60 MG/2 ML SDV IM ONE (14:15)
[2023-01-28 20:08] VITALS: BP 138/78; PULSE 82
== END 2023-01-28 16:25 | disposition home or self-care (01) ==
LOC: JD.ED 12:48
DX: M54.6 Pain in thoracic spine (principal); E78.00 Pure hypercholesterolemia, unspecified; E11.9 Type 2 diabetes mellitus without complications; I10 Essential (primary) hypertension; E66.9 Obesity, unspecified; Z68.38 Body mass index [BMI] 38.0-38.9, adult; Z79.84 Long term (current) use of oral hypoglycemic drugs
CPT/HCPCS: 36415; 72125; 72128; 72131; 80053; 85025; 86140; 96372; 99284; A9270; J1885; 99283

== ENCOUNTER 2023-08-02 15:08 | Emergency (ER) | payer OTHER ==
[2023-08-02 17:36] VITALS: BP 148/95; PULSE 82
== END 2023-08-02 16:53 | disposition home or self-care (01) ==
LOC: JD.ED 15:08
DX: M25.561 Pain in right knee (principal); I10 Essential (primary) hypertension; E11.9 Type 2 diabetes mellitus without complications; E66.9 Obesity, unspecified; Z68.41 Body mass index [BMI] 40.0-44.9, adult; Z87.891 Personal history of nicotine dependence; Z79.84 Long term (current) use of oral hypoglycemic drugs; Z79.899 Other long term (current) drug therapy
CPT/HCPCS: 73562-26-RT; 73562-RT; 99283

== ENCOUNTER 2023-10-11 06:00 | Day surgery (SDC) | payer OTHER ==
[~2023-10-11 06:00] MED LIST changes: -Acetaminophen/oxyCODONE 325-5 MG Tab PO PRN; -Bisacodyl 5 MG Tab PO PRN; -Famotidine 20 MG Tab PO SCH; -Lactated Ringers 1,000 ML IV SCH; -Lidocaine 1%/Sod Bicarbonate in NS 8.4% 1 ML Syringe IV PRN; -Magnesium Hydroxide 400 MG/5 ML Susp 30 ML Cup PO PRN; -Morphine 2 MG/ML Syringe IVPUSH PRN; -Naloxone 0.4 MG/ML SDV IVPUSH PRN; -Ondansetron 4 MG/2 ML SDV IVPUSH PRN; -Sennosides 8.6 MG Tab PO PRN; +Sodium Chloride 0.9% 10 ML Syringe FLUSH SCH; -ceFAZolin 2 GM in Premix Bag 1 BAG IV SCH; -diphenhydrAMINE 50 MG/ML SDV IVPUSH PRN
[2023-10-11] MEDS: Lactated Ringers 1,000 ML IV SCH (06:05)
[2023-10-11] MEDS: Acetaminophen 325 MG Tab PO SCH (06:26)
[2023-10-11] MEDS: oxyCODONE ER 10 MG TAB.ER PO SCH (06:26)
[2023-10-11] MEDS: Pregabalin 25 MG Cap PO SCH (06:26)
[2023-10-11] MEDS ORDERED: Ropivacaine 0.5% 5 MG/ML 30 ML SDV ONE (06:27)
[2023-10-11] MEDS ORDERED: EPINEPHrine 1 MG/ML SDV ONE (06:27)
[2023-10-11] MEDS ORDERED: fentaNYL 250 MCG/5 ML SDV ONE (06:28)
[2023-10-11] MEDS ORDERED: Midazolam 1 MG/ML 2 ML SDV ONE (06:28)
[2023-10-11] MEDS ORDERED: Propofol 200 MG/20 ML SDV ONE ×4 (06:28→07:56)
[2023-10-11] MEDS ORDERED: fentaNYL 100 MCG/2 ML SDV ONE (06:29)
[2023-10-11] MEDS ORDERED: ceFAZolin 2 GM Vial ONE (06:38)
[2023-10-11] MEDS ORDERED: Lactated Ringers 1,000 ML ONE (07:25)
[2023-10-11] MEDS ORDERED: dexmedeTOMIDine HCl 200 MCG/2 ML SDV ONE (07:27)
[2023-10-11] MEDS ORDERED: Dexamethasone 4 MG/ML 5 ML MDV ONE (07:27)
[2023-10-11] MEDS ORDERED: ePHEDrine 50 MG/ML SDV ONE (07:34)
[2023-10-11] MEDS ORDERED: Ondansetron 4 MG/2 ML SDV ONE (07:45)
[2023-10-11] MEDS: Morphine 8 MG, EPINEPHrine 0.3 MG, Cefuroxime 750 MG, Ketorolac 30 MG, Sodium Chloride ... PRN (08:06)
[2023-10-11] MEDS: Vancomycin 1 GM SDV ONE (08:12)
[2023-10-11] MEDS: Tranexamic Acid 1,000 MG/10 ML Vial ONE (08:12)
[2023-10-11] MEDS ORDERED: Ketorolac 30 MG/ML SDV ONE (08:13)
[2023-10-11] MEDS: oxyCODONE 5 MG Tab PO SCH (10:42)
[2023-10-11 12:56] VITALS: BP 116/76; PULSE 67
== END 2023-10-11 13:06 | disposition home or self-care (01) ==
LOC: JD.SDS 06:00
PROVIDERS: ATTEND Orthopaedic Surgery
DX: M17.11 Unilateral primary osteoarthritis, right knee (principal); M25.461 Effusion, right knee; M25.561 Pain in right knee; G47.30 Sleep apnea, unspecified; E11.9 Type 2 diabetes mellitus without complications; I10 Essential (primary) hypertension; Z96.651 Presence of right artificial knee joint; Z72.0 Tobacco use; Z79.899 Other long term (current) drug therapy; Z79.84 Long term (current) use of oral hypoglycemic drugs
CPT/HCPCS: 0055T; 27447; 64447; 73560; 97116; 97161; A9270; C1713; C1776; J0171; J0690; J0697; J1100; J1885; J2250; J2270; J2405; J2704; J2795; J3010; J3370; J7120; 01392; J3490

== ENCOUNTER 2023-10-17 08:05 | Emergency (ER) | payer OTHER ==
[2023-10-17 09:27] LABS: BASOPHILS ABSOLUTE AUTO 0.1 K/mm3 (0.0-0.2); BASOPHILS PERCENT AUTO 0.6 % (0.0-1.0); EOSINOPHILS ABSOLUTE AUTO 0.3 K/mm3 (0.0-0.4); EOSINOPHILS PERCENT AUTO 3.7 % (0.0-6.0); HEMATOCRIT 39.9 % (42.0-52.0); HEMOGLOBIN 13.8 gm/dl (14.0-18.0); IMMATURE GRAN ABSOLUTE AUTO 0.08 K/mm3 (0.00-0.05); LYMPHOCYTES PERCENT AUTO 24.3 % (24.0-44.0); MEAN CORPUSCULAR HEMOGLOBIN 29.7 pg (28.0-32.0); MEAN CORPUSCULAR HGB CONC 34.6 g/dl (32.0-36.0); MEAN PLATELET VOLUME 8.2 fl (9.4-12.4); MONOCYTES ABSOLUTE AUTO 0.6 K/mm3 (0.0-0.8); NEUTROPHILS ABSOLUTE AUTO 5.3 K/mm3 (1.8-7.7); NEUTROPHILS PERCENT AUTO 63.4 % (41.0-71.0); PLATELET COUNT,PLT 270 K/mm3 (150-400); RED BLOOD CELL COUNT 4.64 M/mm3 (4.52-5.90); WHITE BLOOD CELL COUNT,WBC 8.32 K/mm3 (3.9-11.3)
[2023-10-17 09:50] LABS: A/G RATIO 0.9 (1-2); ALBUMIN 3.9 g/dl (3.4-5.0); ANION GAP 15.3 (5-15); BILIRUBIN TOTAL 1.3 mg/dL (0.2-1.0); C-REACTIVE PROTEIN 2.17 mg/dL (<0.30); CALCIUM 9.4 mg/dL (8.5-10.1); EST CRCL DRUG DOSING (CG) 89.3 mL/min; MAGNESIUM 1.8 mg/dL (1.8-2.4); POTASSIUM,K 4.3 mEq/L (3.5-5.1); PROTEIN TOTAL,TP 8.1 g/dl (6.4-8.2)
[2023-10-17] MEDS: Sodium Chloride 0.9% 10 ML Syringe FLUSH PRN (10:53)
[2023-10-17] MEDS: HYDROmorphone 1 MG/ML Syringe IVPUSH ONE (11:26)
[2023-10-17] MEDS: cefTRIAXone 1 GM in Sodium Chloride 0.9% 100 ML IV ONE (11:27)
[2023-10-17 16:54] VITALS: BP 137/76; PULSE 106
== END 2023-10-17 14:48 | disposition home or self-care (01) ==
LOC: JD.ED 08:05
DX: M79.651 Pain in right thigh (principal); E78.00 Pure hypercholesterolemia, unspecified; I10 Essential (primary) hypertension; E11.9 Type 2 diabetes mellitus without complications; Z96.651 Presence of right artificial knee joint; Z86.19 Personal history of other infectious and parasitic diseases; Z79.82 Long term (current) use of aspirin; Z79.899 Other long term (current) drug therapy
CPT/HCPCS: 36415; 73700; 80053; 83735; 85025; 86140; 93971; 96365; 96375; 99284; J0696; J1170; J3490